=== PATIENT | female | born 1940 | race Caucasian/White ===

== ENCOUNTER 2024-11-07 21:39 | Inpatient (IN) | payer MEDICARE ==
[2024-11-07 22:10] LABS: Basophils # (A) 0.1 k/uL (0-0.2); Basophils % (A) 1 %; Eosinophils # (A) 0.3 k/uL (0-0.7); Eosinophils % (A) 3 %; HCT 32.2 % (34.0-46.0); HGB 9.1 gm/dL (11.4-16.0); Hypochromasia Marked; Lymphocytes # (A) 2.6 k/uL (1.0-4.8); Lymphocytes % (A) 29 %; MCH 25.4 pg (25.0-35.0); MCHC 28.3 g/dL (31.0-37.0); Mean Platelet Volume 7.1; Monocytes # (A) 0.5 k/uL (0-1.0); Monocytes % (A) 6 %; Neutrophils # (A) 5.3 k/uL (1.3-7.7); Neutrophils % (A) 58 %; Platelet Count 388 k/uL (150-450); RBC 3.58 m/uL (3.80-5.40); RDW 14.8 % (11.5-15.5)
--- NOTE | 2024-11-07 22:13 | ED ---
General Adult HPI - General Chief complaint: GI Bleed Stated complaint: GI Bleed Time Seen by Provider: 11/07/24 21:40 Source: patient, EMS, RN notes reviewed, old records reviewed Mode of arrival: EMS Limitations: no limitations - History of Present Illness Initial comments: 84-year-old female presenting for evaluation of rectal bleeding. Patient had several episodes of bright red rectal bleeding over the course of a few minutes just prior to arrival. She denies prior history of gastrointestinal hemorrhage. She denies any anticoagulation medication. She was transported by paramedics. She reports that the blood was bright red. No abdominal pain. - Related Data Allergies Allergy/AdvReac Type Severity Reaction Status Date / Time Penicillins Allergy Anaphylaxis Verified 11/07/24 21:42 Review of Systems ROS Statement: Those systems with pertinent positive or pertinent negative responses have been documented in the HPI. ROS Other: All systems not noted in ROS Statement are negative. Past Medical History Past Medical History: CVA/TIA, Hyperlipidemia Additional Past Medical History / Comment(s): CVA 2023, hernia History of Any Multi-Drug Resistant Organisms: None Reported Past Surgical History: Cholecystectomy, Hernia Repair Additional Past Surgical History / Comment(s): esophageal dilation Past Psychological History: Anxiety, Depression General Exam Limitations: no limitations General appearance: alert, in no apparent distress Head exam: Present: atraumatic, normocephalic Eye exam: Present: normal appearance, PERRL ENT exam: Present: normal exam Neck exam: Present: normal inspection. Absent: tenderness, meningismus Respiratory exam: Present: normal lung sounds bilaterally. Absent: respiratory distress, wheezes Cardiovascular Exam: Present: regular rate, normal rhythm GI/Abdominal exam: Present: soft. Absent: distended, tenderness Rectal exam: Present: bloody stool. Absent: hemorrhoids Neurological exam: Present: alert, oriented X3, CN II-XII intact. Absent: motor sensory deficit Psychiatric exam: Present: normal affect, normal mood Skin exam: Present: warm, dry, intact Course Vital Signs 11/07/24 11/07/24 21:43 22:39 Temperature 97.7 F Pulse Rate 98 96 Respiratory 18 15 Rate Blood Pressure 130/92 115/55 O2 Sat by Pulse 97 97 Oximetry Medical Decision Making - Medical Decision Making Was pt. sent in by a medical professional or institution (, PA, CHIEF CLINICAL OFFICER, urgent care, hospital, or longterm...) When possible be specific @ -No Did you speak to anyone other than the patient for history (EMS, parent, family, police, friend...)? What history was obtained from this source @ -No Did you review nursing and triage notes (agree or disagree)? Why? @ -I reviewed and agree with nursing and triage notes Were old charts reviewed (outside hosp., previous admission, EMS record, old EKG, old radiological studies, urgent care reports/EKG's, longterm records)? Report findings @ -No old charts were reviewed Differential GI Bleed: Esophageal varices, aortoenteric fistula, Devika-Gar, gastritis, peptic ulcer disease, diverticulosis, inflammatory bowel disease, hemorrhoids, fissure, colitis, malignancy, Meckel's diverticulum, this is not meant to be an all- inclusive list. EKG interpreted by me (3pts min.). @Sinus rhythm rate of 89, [place] interval 150, QRS duration 85, QTc [address] segment elevation. X-rays interpreted by me (1pt min.). @ -None done CT interpreted by me (1pt min.). @ -None done U/S interpreted by me (1pt. min.). @ -None done What testing was considered but not performed or refused? (CT, X-rays, U/S, labs)? Why? @ -None What meds were considered but not given or refused? Why? @ -None Did you discuss the management of the patient with other professionals (professionals i.e. , PA, CHIEF CLINICAL OFFICER, lab, RT, psych nurse, forensic social worker, manager of financial, teacher, chief information security officer, transplant case manager)? Give summary @ -Case discussed with Dr. Bailon, who is willing to see the patient in consultation. Case discussed with Elma rodríguez for [facility] will admit Was smoking cessation discussed for >3mins.? @ -No Was critical care preformed (if so, how long)? @ -No Were there social determinants of health that impacted care today? How? (Homelessness, low income, unemployed, alcoholism, drug addiction, transportation, low edu. Level, literacy, decrease access to med. care, usp, rehab)? @ -No Was there de-escalation of care discussed even if they declined (Discuss DNR or withdrawal of care, Hospice)? DNR status @ -No What co-morbidities impacted this encounter? (DM, HTN, Smoking, COPD, CAD, Cancer, CVA, ARF, Chemo, Hep., AIDS, mental health diagnosis, sleep apnea, morbid obesity)? @ -[Hypertension Was patient admitted / discharged? Hospital course, mention meds given and route, prescriptions, significant lab abnormalities, going to OR and other pertinent info. @ -84-year-old female with an episode of bright red rectal bleeding prior to ar rival. Hemoglobin is 9.1 with no baseline for comparison. Vital signs remained stable. She does have magnesium 1.3 which is replaced. She will be admitted for close monitoring, serial hemoglobin testing. Case discussed with general surgery and internal medicine. Undiagnosed new problem with uncertain prognosis? @ -[No Drug Therapy requiring intensive monitoring for toxicity (Heparin, Nitro, Insulin, Cardizem)? @ -No Were any procedures done? @ -No Diagnosis/symptom? @ -Lower GI bleed Acute, or Chronic, or Acute on Chronic? @ -Acute Uncomplicated (without systemic symptoms) or Complicated (systemic symptoms)? @ -Complicated Side effects of treatment? @ -No Exacerbation, Progression, or Severe Exacerbation? @ -No Poses a threat to life or bodily function? How? (Chest pain, [place], [place], pneumonia, PE, COPD, DKA, ARF, appy, cholecystitis, CVA, Diverticulitis, Homicidal, Suicidal, threat to staff... and all critical care pts) @Yes, GI bleed, hemorrhagic shock - Lab Data Result diagrams: 11/07/24 23:15 11/07/24 21:46 Lab Results 11/07/24 11/07/24 11/07/24 Range/Units 21:41 21:46 21:46 WBC 9.0 (3.8-10.6) k/uL RBC 3.58 L (3.80-5.40) m/uL Hgb 9.1 L (11.4-16.0) gm/dL Hct 32.2 L (34.0-46.0) % MCV 90.0 (80.0-100.0) fL MCH 25.4 (25.0-35.0) pg MCHC 28.3 L (31.0-37.0) g/dL RDW 14.8 (11.5-15.5) % Plt Count 388 (150-450) k/uL MPV 7.1 Neutrophils % 58 % Lymphocytes % 29 % Monocytes % 6 % Eosinophils % 3 % Basophils % 1 % Neutrophils # 5.3 (1.3-7.7) k/uL Lymphocytes # 2.6 (1.0-4.8) k/uL Monocytes # 0.5 (0-1.0) k/uL Eosinophils # 0.3 (0-0.7) k/uL Basophils # 0.1 (0-0.2) k/uL Hypochromasia Marked PT 10.4 (10.0-12.5) sec INR 0.9 (<1.2) APTT 19.7 L (22.0-30.0) sec Sodium (137-145) mmol/L Potassium (3.5-5.1) mmol/L Chloride (98-107) mmol/L Carbon Dioxide (22-30) mmol/L Anion Gap mmol/L BUN (7-17) mg/dL Creatinine (0.52-1.04) mg/dL Est GFR (CKD-EPI)AfAm (>60 ml/min/1.73 sqM) Est GFR (CKD-EPI)NonAf (>60 ml/min/1.73 sqM) Glucose (74-99) mg/dL Calcium (8.4-10.2) mg/dL Magnesium (1.6-2.3) mg/dL Total Bilirubin (0.2-1.3) mg/dL AST (14-36) U/L ALT (4-34) U/L Alkaline Phosphatase (38-126) U/L Total Protein (6.3-8.2) g/dL Albumin (3.5-5.0) g/dL Blood Type B Positive Blood Type Confirm Blood Type Recheck No Previous Record Bld Type Recheck Status CABO Indicated Antibody Screen NEGATIVE Spec Expiration Date 11/10/2024234011/07/24 11/07/24 Range/Units 21:46 21:46 WBC (3.8-10.6) k/uL RBC (3.80-5.40) m/uL Hgb (11.4-16.0) gm/dL Hct (34.0-46.0) % MCV (80.0-100.0) fL MCH (25.0-35.0) pg MCHC (31.0-37.0) g/dL RDW (11.5-15.5) % Plt Count (150-450) k/uL MPV Neutrophils % % Lymphocytes % % Monocytes % % Eosinophils % % Basophils % % Neutrophils # (1.3-7.7) k/uL Lymphocytes # (1.0-4.8) k/uL Monocytes # (0-1.0) k/uL Eosinophils # (0-0.7) k/uL Basophils # (0-0.2) k/uL Hypochromasia PT (10.0-12.5) sec INR (<1.2) APTT (22.0-30.0) sec Sodium 135 L (137-145) mmol/L Potassium 4.7 (3.5-5.1) mmol/L Chloride 102 (98-107) mmol/L Carbon Dioxide 16 L (22-30) mmol/L Anion Gap 17 mmol/L BUN 24 H (7-17) mg/dL Creatinine 0.92 (0.52-1.04) mg/dL Est GFR (CKD-EPI)AfAm 66 (>60 ml/min/1.73 sqM) Est GFR (CKD-EPI)NonAf 57 (>60 ml/min/1.73 sqM) Glucose 142 H (74-99) mg/dL Calcium 9.8 (8.4-10.2) mg/dL Magnesium 1.3 L (1.6-2.3) mg/dL Total Bilirubin 0.3 (0.2-1.3) mg/dL AST 22 (14-36) U/L ALT 17 (4-34) U/L Alkaline Phosphatase 68 (38-126) U/L Total Protein 6.2 L (6.3-8.2) g/dL Albumin 4.0 (3.5-5.0) g/dL Blood Type Blood Type Confirm B Positive Blood Type Recheck Bld Type Recheck Status Antibody Screen Spec Expiration Date Disposition Clinical Impression: Hematochezia Disposition: ADMITTED IP TO THIS [facility] Condition: Stable Is patient prescribed a controlled substance at d/c from ED?: No Time of Disposition: 23:32
[2024-11-07 22:23] LABS: ALT 17 U/L (4-34); AST 22 U/L (14-36); African American GFR (CKD) 66 (>60 ml/min/1.73 sqM); Alkaline Phosphatase 68 U/L (38-126); Anion Gap 17 mmol/L; Blood Urea Nitrogen 24 mg/dL (7-17); Calcium 9.8 mg/dL (8.4-10.2); Carbon Dioxide 16 mmol/L (22-30); Chloride 102 mmol/L (98-107); Glucose 142 mg/dL (74-99); Magnesium 1.3 mg/dL (1.6-2.3); Non-African American GFR(CKD) 57 (>60 ml/min/1.73 sqM); Potassium 4.7 mmol/L (3.5-5.1); Sodium 135 mmol/L (137-145); Total Bilirubin 0.3 mg/dL (0.2-1.3); Total Protein 6.2 g/dL (6.3-8.2)
[2024-11-07 22:41] LABS: INR 0.9 (<1.2); Prothrombin Time 10.4 sec (10.0-12.5)
[2024-11-07 22:45] LABS: Partial Thromboplastin Time 19.7 sec (22.0-30.0)
[2024-11-07] MEDS: MAGNESIUM SULFATE-D5W PMX 1 GM in DEXTROSE/WATER 1 100ML.BAG IVPB SCH (22:57)
[2024-11-07] MEDS ORDERED: NALOXONE 0.4 MG/ML 1 ML VIAL IV PRN (23:01)
[2024-11-07] MEDS ORDERED: ACETAMINOPHEN TAB 325 MG TAB PO PRN (23:01)
[2024-11-07 23:26] LABS: Basophils # (A) 0.1 k/uL (0-0.2); Basophils % (A) 1 %; Eosinophils # (A) 0.2 k/uL (0-0.7); Eosinophils % (A) 2 %; HCT 28.1 % (34.0-46.0); HGB 8.4 gm/dL (11.4-16.0); Hypochromasia Marked; Lymphocytes # (A) 1.8 k/uL (1.0-4.8); Lymphocytes % (A) 20 %; MCH 26.7 pg (25.0-35.0); MCV 89.3 fL (80.0-100.0); Mean Platelet Volume 6.6; Monocytes # (A) 0.5 k/uL (0-1.0); Monocytes % (A) 6 %; Neutrophils # (A) 6.1 k/uL (1.3-7.7); Neutrophils % (A) 69 %; Platelet Count 335 k/uL (150-450); RBC 3.15 m/uL (3.80-5.40); RDW 14.8 % (11.5-15.5); WBC 8.9 k/uL (3.8-10.6)
[2024-11-07] MEDS: SODIUM CHLORIDE 0.9% 1,000 ML IV SCH (23:33)
[2024-11-07] MEDS: ONDANSETRON 4 MG/2 ML VIAL IVP STA (23:33)
[2024-11-08 02:44] LABS: Basophils % (A) 1 %; Eosinophils # (A) 0.1 k/uL (0-0.7); Eosinophils % (A) 1 %; HCT 27.1 % (34.0-46.0); HGB 7.9 gm/dL (11.4-16.0); Hypochromasia Marked; Lymphocytes # (A) 1.2 k/uL (1.0-4.8); Lymphocytes % (A) 16 %; MCH 26.6 pg (25.0-35.0); MCHC 29.4 g/dL (31.0-37.0); MCV 90.7 fL (80.0-100.0); Mean Platelet Volume 7.1; Monocytes # (A) 0.3 k/uL (0-1.0); Monocytes % (A) 4 %; Neutrophils # (A) 5.9 k/uL (1.3-7.7); Neutrophils % (A) 77 %; Platelet Count 314 k/uL (150-450); RBC 2.98 m/uL (3.80-5.40); RDW 14.8 % (11.5-15.5); WBC 7.6 k/uL (3.8-10.6)
[2024-11-08 05:56] LABS: Basophils % (A) 1 %; Eosinophils # (A) 0.1 k/uL (0-0.7); Eosinophils % (A) 1 %; HCT 26.9 % (34.0-46.0); HGB 8.1 gm/dL (11.4-16.0); Hypochromasia Marked; Lymphocytes # (A) 1.6 k/uL (1.0-4.8); Lymphocytes % (A) 22 %; MCH 26.9 pg (25.0-35.0); MCHC 30.1 g/dL (31.0-37.0); MCV 89.1 fL (80.0-100.0); Mean Platelet Volume 6.8; Monocytes # (A) 0.6 k/uL (0-1.0); Monocytes % (A) 8 %; Neutrophils % (A) 67 %; Platelet Count 296 k/uL (150-450); RBC 3.02 m/uL (3.80-5.40); RDW 14.9 % (11.5-15.5); WBC 7.5 k/uL (3.8-10.6)
[2024-11-08] MEDS ORDERED: HYDROcodone/APAP 5-325MG 1 EACH TAB PO PRN (09:06)
[2024-11-08] MEDS ORDERED: NALOXONE 0.4 MG/ML 1 ML VIAL IV PRN (09:06)
[2024-11-08] MEDS ORDERED: MAG HYDROX/AL HYDROX/SIMETH 30 ML CUP PO PRN (09:06)
[2024-11-08] MEDS: LEVOTHYROXINE 75 MCG TAB PO SCH (10:23)
--- NOTE | 2024-11-08 10:49 | CT ---
EXAMINATION TYPE: CT angio abdomen pelvis CT abdomen and pelvis without contrast. CT angiogram abdomen and pelvis with contrast. DATE OF EXAM: 11/08/2024 10:35 AM COMPARISON: None. CLINICAL INDICATION: Female, 84 years old with history of Bleeding per rectum; PHH, rectal bleeding TECHNIQUE: CT angio abdomen pelvis CT noncontrast abdomen pelvis and bilateral lower extremity followed by CT angiogram abdomen and pelv is. Multiple thin slice sub-millimeter images were obtained before and after administration of contrast. 3-D reconstructed images and maximum intensity projection images were obtained. CT angio abdomen p ligia CT Contrast: Contrast used:100 mL of Isovue 370 without and with IV Contrast, Oral contrast used: without Oral Contrast None CT DLP: 1602 mGycm, Automated exposure control for dose reduction was used. FINDINGS: CTA Abdomen and pelvis: The abdominal aorta does not demonstrate aneurysmal dilatation. Atherosclero tic plaquing is identified within the abdominal aorta. The origins of the superior mesenteric artery , renal arteries, inferior mesenteric artery, and celiac axis are patent. The iliac vessels are norm al in morphology. LOWER CHEST: 4 x 2 mm right middle lobe pulmonary nodule. No evidence of focal consolidation, pneumot horax or pleural effusion. LIVER: Unremarkable GALLBLADDER AND BILE DUCTS: The gallbladder is surgically absent. PANCREAS: Unremarkable. SPLEEN: Unremarkable. ADRENAL GLANDS: Unremarkable. KIDNEYS AND URETERS: No evidence of hydronephrosis or renal calculus. The ureters are unremarkable. Right renal cortical cyst. PELVIS BLADDER: Unremarkable REPRODUCTIVE: Unremarkable. ABDOMEN & PELVIS STOMACH AND BOWEL: Evaluation of the gastrointestinal tract demonstrates scattered high density fecal matter none of which enlarges in size on delayed imaging. No evidence of high density hemorrhage on arterial phase or pooling of blood on delayed phases.. Scattered diverticula are noted throughout the colon. No evidence of bowel obstruction. PERITONEUM: No evidence of pneumoperitoneum or free fluid. VASCULATURE: Moderate atherosclerotic calcifications are present throughout the abdominal aorta and i ts branches. MUSCULOSKELETAL: No acute osseous abnormalities, remote left inferior pubic ramus fracture and superi or pubic ramus fracture. LYMPH NODES: No gross evidence for lymphadenopathy. SOFT TISSUE/ABDOMINAL WALL: Bilateral fat filled inguinal hernia. IMPRESSION: 1. No evidence for gastrointestinal hemorrhage. No evidence of vascular occlusion. Moderate severe a therosclerotic disease. No evidence for aneurysm. [facility], , 11/08/2024 10:47 AM
[2024-11-08] MEDS: PANTOPRAZOLE 40 MG/10 ML VIAL IVP SCH (11:08)
[2024-11-08 11:29] LABS: Basophils % (A) 1 %; Eosinophils # (A) 0.1 k/uL (0-0.7); Eosinophils % (A) 2 %; HCT 24.2 % (34.0-46.0); HGB 7.3 gm/dL (11.4-16.0); Hypochromasia Marked; Lymphocytes # (A) 1.5 k/uL (1.0-4.8); Lymphocytes % (A) 22 %; MCH 27.2 pg (25.0-35.0); MCHC 30.2 g/dL (31.0-37.0); MCV 89.8 fL (80.0-100.0); Mean Platelet Volume 7.1; Monocytes # (A) 0.4 k/uL (0-1.0); Monocytes % (A) 6 %; Neutrophils # (A) 4.6 k/uL (1.3-7.7); Neutrophils % (A) 68 %; Platelet Count 308 k/uL (150-450); WBC 6.8 k/uL (3.8-10.6)
--- NOTE | 2024-11-08 13:20 | P.HPIM ---
History of Present Illness H&P Date: 11/08/24 History of present illness; patient is a 84-year-old lady with past medical history significant for CVA, dementia, hyperlipidemia who presented to the ER for complaint of bleeding per rectum. Patient was all right a few hours back before coming to the hospital when she suddenly started noticing bright red blood coming out of her rectum. Bleeding was sudden onset, no blood clots noticed, there was no complaint of any abdominal pain. Patient denies any altered bowel movements. There is no complaint of constipation. Denies any nausea, vomiting or hematemesis. Patient denies any history of hemorrhoids. There was no complaint of chest pain or shortness of breath. Because of this bleeding per rectum, patient brought to the ER Initial lab work done in the ER showed WBC 9, hemoglobin 9.1, platelet count 388, sodium 135, potassium 4.7, BUN 24, creatinine 0.92, glucose 142, magnesium 1.3, albumin 4 EKG done in the ER showed heart rate of 89 , no ST segment elevation or depression seen, no T-wave inversions seen. Patient admitted to internal medicine service REVIEW OF SYSTEMS: CONSTITUTIONAL: No fever, no malaise, no fatigue. HEENT: No recent visual problems or hearing problems. Denied any sore throat. CARDIOVASCULAR: No chest pain, orthopnea, PND, no palpitations, no syncope. PULMONARY: No shortness of breath, no cough, no hemoptysis. GASTROINTESTINAL: As mentioned above NEUROLOGICAL: No headaches, no weakness, no numbness. HEMATOLOGICAL: Denies any bleeding or petechiae. GENITOURINARY: Denies any burning micturition, frequency, or urgency. MUSCULOSKELETAL/RHEUMATOLOGICAL: Denies any joint pain, swelling, or any muscle pain. ENDOCRINE: Denies any polyuria or polydipsia. The rest of the 14-point review of systems is negative. PHYSICAL EXAMINATION: GENERAL: The patient is alert and oriented x2-3, not in any acute distress. Ill looking HEENT: Pupils are round and equally reacting to light. EOMI. No scleral icterus. No conjunctival pallor. Normocephalic, atraumatic. No pharyngeal erythema. No thyromegaly. CARDIOVASCULAR: S1 and S2 present. No murmurs, rubs, or gallops. PULMONARY: Chest is clear to auscultation, no wheezing or crackles. ABDOMEN: Soft, nontender, nondistended, normoactive bowel sounds. No palpable organomegaly. MUSCULOSKELETAL: No joint swelling or deformity. EXTREMITIES: No cyanosis, clubbing, or pedal edema. NEUROLOGICAL: Gross neurological examination did not reveal any focal deficits. SKIN: No rashes. Assessment and plan Bleeding per rectum Acute blood loss anemia Hypomagnesemia History of hypertension History of hypothyroidism Dementia History of CVA Monitor vital signs Monitor CBC Monitor CMP Continue telemetry monitoring H&H every 6 hourly Start IV fluids Avoid aspirin or NSAIDs Ordered antibiotics Ordered CTA abdominal pelvis Start Protonix Consult surgery Labs and medication were reviewed.. Continue same treatment. Continue with symptomatic treatment. Resume home medication. Monitor labs and vitals. DVT and GI prophylaxis. Further recommendations as per clinical course of the patient Dictation was produced using [employer] dictation software. please excuse any grammatical, word or spelling errors. Past Medical History Past Medical History: CVA/TIA, Hyperlipidemia Additional Past Medical History / Comment(s): CVA 2023, hernia History of Any Multi-Drug Resistant Organisms: None Reported Past Surgical History: Cholecystectomy, Hernia Repair Additional Past Surgical History / Comment(s): esophageal dilation Past Psychological History: Anxiety, Depression Medications and Allergies Home Medications Medication Instructions Recorded Confirmed Type Aspirin EC [Ecotrin Low Dose] 81 mg PO DAILY@1200 11/08/24 11/08/24 History Atorvastatin [Lipitor] 40 mg PO HS 11/08/24 11/08/24 History Cholecalciferol [Vitamin D3 (25 50 mcg PO DAILY 11/08/24 11/08/24 History Mcg = 1000 Iu)] Escitalopram Oxalate [Lexapro] 10 mg PO HS 11/08/24 11/08/24 History Famotidine [Pepcid] 20 mg PO HS 11/08/24 11/08/24 History Levothyroxine Sodium [Synthroid] 75 mcg PO DAILY 11/08/24 11/08/24 History Losartan [Cozaar] 25 mg PO DAILY@1200 11/08/24 11/08/24 History Meloxicam [Mobic] 7.5 mg PO W/SUPPER 11/08/24 11/08/24 History Metoprolol Succinate (ER) [Toprol 25 mg PO HS 11/08/24 11/08/24 History Xl] QUEtiapine FUMARATE [SEROquel] 25 mg PO HS 11/08/24 11/08/24 History Vitamin B12 (Unknown Dose) 1 tab PO DAILY@1200 11/08/24 11/08/24 History metFORMIN HCL 1,000 mg PO BID-W/MEALS 11/08/24 11/08/24 History Allergies Allergy/AdvReac Type Severity Reaction Status Date / Time ciprofloxacin [From Cipro] Allergy PER PCP Verified 11/08/24 09:01 latex Allergy PER PCP Verified 11/08/24 09:01 Penicillins Allergy Anaphylaxis Verified 11/08/24 09:01 Physical Exam Vitals: Vital Signs Temp Pulse Resp BP Pulse Ox 11/08/24 07:26 89 18 109/43 95 11/08/24 07:00 80 13 109/43 93 L 11/08/24 04:30 81 16 122/50 93 L 11/08/24 00:00 78 16 118/63 95 11/07/24 22:39 96 15 115/55 97 11/07/24 21:43 97.7 F 98 18 130/92 97 Intake and Output 11/07/24 11/08/24 11/08/24 22:59 06:59 14:59 Other: Weight 73.936 kg Results CBC & Chem 7: 11/08/24 11:01 11/07/24 21:46 Labs: Abnormal Lab Results - Last 24 Hours (Table) 11/07/24 11/07/24 11/07/24 Range/Units 21:46 21:46 21:46 RBC 3.58 L (3.80-5.40) m/uL Hgb 9.1 L (11.4-16.0) gm/dL Hct 32.2 L (34.0-46.0) % MCHC 28.3 L (31.0-37.0) g/dL APTT 19.7 L (22.0-30.0) sec Sodium 135 L (137-145) mmol/L Carbon Dioxide 16 L (22-30) mmol/L BUN 24 H (7-17) mg/dL Glucose 142 H (74-99) mg/dL Magnesium 1.3 L (1.6-2.3) mg/dL Total Protein 6.2 L (6.3-8.2) g/dL 11/07/24 11/08/24 11/08/24 Range/Units 23:15 02:10 05:40 RBC 3.15 L 2.98 L 3.02 L (3.80-5.40) m/uL Hgb 8.4 L 7.9 L 8.1 L (11.4-16.0) gm/dL Hct 28.1 L 27.1 L 26.9 L (34.0-46.0) % MCHC 30.0 L 29.4 L 30.1 L (31.0-37.0) g/dL APTT (22.0-30.0) sec Sodium (137-145) mmol/L Carbon Dioxide (22-30) mmol/L BUN (7-17) mg/dL Glucose (74-99) mg/dL Magnesium (1.6-2.3) mg/dL Total Protein (6.3-8.2) g/dL
[2024-11-08 16:12] LABS: Glucose,Whole Blood 135 mg/dL (70-110)
--- NOTE | 2024-11-08 16:55 | P.GSCN ---
History of Present Illness Consult date: 11/08/24 Reason for Consult: GI bleed History of present illness: This is an 84-year-old female who is admitted through the emergency room with complaints of rectal bleeding. Patient states h she had multiple small bloody bowel movements. Past Medical History Past Medical History: CVA/TIA, Hyperlipidemia Additional Past Medical History / Comment(s): CVA 2023, hernia History of Any Multi-Drug Resistant Organisms: None Reported Past Surgical History: Cholecystectomy, Hernia Repair Additional Past Surgical History / Comment(s): esophageal dilation Past Psychological History: Anxiety, Depression Medications and Allergies Home Medications Medication Instructions Recorded Confirmed Type Aspirin EC [Ecotrin Low Dose] 81 mg PO DAILY@119911/08/24 11/08/24 History Atorvastatin [Lipitor] 40 mg PO HS 11/08/24 11/08/24 History Cholecalciferol [Vitamin D3 (25 50 mcg PO DAILY 11/08/24 11/08/24 History Mcg = 1000 Iu)] Escitalopram Oxalate [Lexapro] 10 mg PO HS 11/08/24 11/08/24 History Famotidine [Pepcid] 20 mg PO HS 11/08/24 11/08/24 History Levothyroxine Sodium [Synthroid] 75 mcg PO DAILY 11/08/24 11/08/24 History Losartan [Cozaar] 25 mg PO DAILY@1200 11/08/24 11/08/24 History Meloxicam [Mobic] 7.5 mg PO W/SUPPER 11/08/24 11/08/24 History Metoprolol Succinate (ER) [Toprol 25 mg PO HS 11/08/24 11/08/24 History Xl] QUEtiapine FUMARATE [SEROquel] 25 mg PO HS 11/08/24 11/08/24 History Vitamin B12 (Unknown Dose) 1 tab PO DAILY@1200 11/08/24 11/08/24 History metFORMIN HCL 1,000 mg PO BID-W/MEALS 11/08/24 11/08/24 History Allergies Allergy/AdvReac Type Severity Reaction Status Date / Time ciprofloxacin [From Cipro] Allergy PER PCP Verified 11/08/24 09:01 latex Allergy PER PCP Verified 11/08/24 09:01 Penicillins Allergy Anaphylaxis Verified 11/08/24 09:01 Surgical - Exam Vital Signs Temp Pulse Resp BP Pulse Ox 97.7 F 98 18 130/92 97 11/07/24 21:43 11/07/24 21:43 11/07/24 21:43 11/07/24 21:43 11/07/24 21:43 - General well developed, well nourished, no distress - Eyes PERRL - ENT normal pinna - Neck no masses - Respiratory normal expansion - Cardiovascular Rhythm: regular - Abdomen Abdomen: soft, non tender Results - Labs 11/08/24 11:01 11/07/24 21:46 Abnormal Lab Results - Last 24 Hours (Table) 11/07/24 11/07/24 11/07/24 Range/Units 21:41 21:46 21:46 RBC 3.58 L (3.80-5.40) m/uL Hgb 9.1 L (11.4-16.0) gm/dL Hct 32.2 L (34.0-46.0) % MCHC 28.3 L (31.0-37.0) g/dL APTT 19.7 L (22.0-30.0) sec Sodium (137-145) mmol/L Carbon Dioxide (22-30) mmol/L BUN (7-17) mg/dL Glucose (74-99) mg/dL POC Glucose (mg/dL) (70-110) mg/dL Magnesium (1.6-2.3) mg/dL Total Protein (6.3-8.2) g/dL Crossmatch See Detail 11/07/24 11/07/24 11/08/24 Range/Units 21:46 23:15 02:10 RBC 3.15 L 2.98 L (3.80-5.40) m/uL Hgb 8.4 L 7.9 L (11.4-16.0) gm/dL Hct 28.1 L 27.1 L (34.0-46.0) % MCHC 30.0 L 29.4 L (31.0-37.0) g/dL APTT (22.0-30.0) sec Sodium 135 L (137-145) mmol/L Carbon Dioxide 16 L (22-30) mmol/L BUN 24 H (7-17) mg/dL Glucose 142 H (74-99) mg/dL POC Glucose (mg/dL) (70-110) mg/dL Magnesium 1.3 L (1.6-2.3) mg/dL Total Protein 6.2 L (6.3-8.2) g/dL Crossmatch 11/08/24 11/08/24 11/08/24 Range/Units 05:40 11:01 16:10 RBC 3.02 L 2.70 L (3.80-5.40) m/uL Hgb 8.1 L 7.3 L (11.4-16.0) gm/dL Hct 26.9 L 24.2 L (34.0-46.0) % MCHC 30.1 L 30.2 L (31.0-37.0) g/dL APTT (22.0-30.0) sec Sodium (137-145) mmol/L Carbon Dioxide (22-30) mmol/L BUN (7-17) mg/dL Glucose (74-99) mg/dL POC Glucose (mg/dL) 135 H (70-110) mg/dL Magnesium (1.6-2.3) mg/dL Total Protein (6.3-8.2) g/dL Crossmatch Diabetes panel 11/07/24 Range/Units 21:46 Sodium 135 L (137-145) mmol/L Potassium 4.7 (3.5-5.1) mmol/L Chloride 102 (98-107) mmol/L Carbon Dioxide 16 L (22-30) mmol/L BUN 24 H (7-17) mg/dL Creatinine 0.92 (0.52-1.04) mg/dL Glucose 142 H (74-99) mg/dL Calcium 9.8 (8.4-10.2) mg/dL AST 22 (14-36) U/L ALT 17 (4-34) U/L Alkaline Phosphatase 68 (38-126) U/L Total Protein 6.2 L (6.3-8.2) g/dL Albumin 4.0 (3.5-5.0) g/dL Calcium panel 11/07/24 Range/Units 21:46 Calcium 9.8 (8.4-10.2) mg/dL Albumin 4.0 (3.5-5.0) g/dL Pituitary panel 11/07/24 Range/Units 21:46 Sodium 135 L (137-145) mmol/L Potassium 4.7 (3.5-5.1) mmol/L Chloride 102 (98-107) mmol/L Carbon Dioxide 16 L (22-30) mmol/L BUN 24 H (7-17) mg/dL Creatinine 0.92 (0.52-1.04) mg/dL Glucose 142 H (74-99) mg/dL Calcium 9.8 (8.4-10.2) mg/dL Adrenal panel 11/07/24 Range/Units 21:46 Sodium 135 L (137-145) mmol/L Potassium 4.7 (3.5-5.1) mmol/L Chloride 102 (98-107) mmol/L Carbon Dioxide 16 L (22-30) mmol/L BUN 24 H (7-17) mg/dL Creatinine 0.92 (0.52-1.04) mg/dL Glucose 142 H (74-99) mg/dL Calcium 9.8 (8.4-10.2) mg/dL Total Bilirubin 0.3 (0.2-1.3) mg/dL AST 22 (14-36) U/L ALT 17 (4-34) U/L Alkaline Phosphatase 68 (38-126) U/L Total Protein 6.2 L (6.3-8.2) g/dL Albumin 4.0 (3.5-5.0) g/dL Assessment and Plan Assessment: GI bleed. Patient will start clear liquids. We will plan for bowel prep to teran with endoscopy on .
[2024-11-08 20:18] LABS: Glucose,Whole Blood 116 mg/dL (70-110)
[2024-11-08] MEDS: QUEtiapine 25 MG TAB PO SCH (20:47)
[2024-11-08] MEDS: ESCITALOPRAM 10 MG TAB PO SCH (20:47)
[2024-11-08] MEDS: ATORVASTATIN 40 MG TAB PO SCH (20:47)
[2024-11-09 06:40] LABS: Glucose,Whole Blood 123 mg/dL (70-110)
[2024-11-09 08:38] LABS: HCT 26.3 % (34.0-46.0); Hypochromasia Marked; MCH 27.1 pg (25.0-35.0); MCHC 30.5 g/dL (31.0-37.0); MCV 88.8 fL (80.0-100.0); Mean Platelet Volume 6.8; Platelet Count 281 k/uL (150-450); RBC 2.96 m/uL (3.80-5.40); RDW 14.9 % (11.5-15.5); WBC 5.6 k/uL (3.8-10.6)
[2024-11-09] MEDS: CHOLECALCIFEROL 25 MCG (1000 IU) TABLET PO SCH (08:41)
[2024-11-09] MEDS: PEG 3350 (236 GM/BTL) + LYTES 4,000 ML BOTTLE PO ONE (08:47)
[2024-11-09 08:48] LABS: African American GFR (CKD) 86 (>60 ml/min/1.73 sqM); Anion Gap 6 mmol/L; Blood Urea Nitrogen 20 mg/dL (7-17); Calcium 8.9 mg/dL (8.4-10.2); Carbon Dioxide 26 mmol/L (22-30); Chloride 104 mmol/L (98-107); Glucose 107 mg/dL (74-99); Non-African American GFR(CKD) 75 (>60 ml/min/1.73 sqM); Potassium 4.2 mmol/L (3.5-5.1); Sodium 136 mmol/L (137-145)
[2024-11-09] MEDS ORDERED: ESCITALOPRAM 10 MG TAB PO SCH (09:00)
[2024-11-09 11:10] LABS: Reticulocyte % 2.7 % (0.5-2.0)
[2024-11-09 11:31] LABS: Glucose,Whole Blood 138 mg/dL (70-110)
--- NOTE | 2024-11-09 13:00 | P.PN ---
Subjective Progress Note Date: 11/09/24 patient is a 84-year-old lady with past medical history significant for CVA, dementia, hyperlipidemia who presented to the ER for complaint of bleeding per rectum. Patient was all right a few hours back before coming to the hospital when she suddenly started noticing bright red blood coming out of her rectum. Bleeding was sudden onset, no blood clots noticed, there was no complaint of any abdominal pain. Patient denies any altered bowel movements. There is no complaint of constipation. Denies any nausea, vomiting or hematemesis. Patient denies any history of hemorrhoids. There was no complaint of chest pain or shortness of breath. Because of this bleeding per rectum, patient brought to the ER Initial lab work done in the ER showed WBC 9, hemoglobin 9.1, platelet count 388, sodium 135, potassium 4.7, BUN 24, creatinine 0.92, glucose 142, magnesium 1.3, albumin 4 EKG done in the ER showed heart rate of 89 , no ST segment elevation or depression seen, no T-wave inversions seen. Patient admitted to internal medicine service 11/09. Patient seen and examined. Blood work done this morning showedWBC 5.6, hemoglobin 8, platelet count 281, sodium 136, potassium 4.2, BUN 20, creatinine 0.74. Patient currently undergoing bowel prep for colonoscopy. Not having any blood in the stools REVIEW OF SYSTEMS: CONSTITUTIONAL: No fever, no malaise,. CARDIOVASCULAR: No chest pain, no palpitations, no syncope. PULMONARY: No shortness of breath, no cough, GASTROINTESTINAL: No diarrhea, no nausea, no vomiting, no abdominal pain. NEUROLOGICAL: No headaches, no weakness, PHYSICAL EXAMINATION: GENERAL: The patient is alert and oriented x3, not in any acute distress. Well developed, well nourished. HEENT: Pupils are round and equally reacting to light. EOMI. No scleral icterus. No conjunctival pallor. Normocephalic, atraumatic. No pharyngeal erythema. No thyromegaly. CARDIOVASCULAR: S1 and S2 present. No murmurs, rubs, or gallops. PULMONARY: Chest is clear to auscultation, no wheezing or crackles. ABDOMEN: Soft, nontender, nondistended, normoactive bowel sounds. No palpable organomegaly. MUSCULOSKELETAL: No joint swelling or deformity. EXTREMITIES: No cyanosis, clubbing, or pedal edema. NEUROLOGICAL: Gross neurological examination did not reveal any focal deficits. SKIN: No rashes. Assessment and plan Bleeding per rectum Acute blood loss anemia Hypomagnesemia History of hypertension History of hypothyroidism Dementia History of CVA Monitor vital signs Monitor CBC Monitor CMP Continue telemetry monitoring Continue IV fluid Avoid aspirin or NSAIDs Continue IV Protonix CT abdominal pelvis showed no evidence for GI hemorrhage. No evidence for vascular occlusion. Surgery following, planning EGD and colonoscopy tomorrow Labs and medication were reviewed.. Continue same treatment. Continue with symptomatic treatment. Resume home medication. Monitor labs and vitals. DVT and GI prophylaxis. Further recommendations as per clinical course of the patient Dictation was produced using [employer] dictation software. please excuse any g rammatical, word or spelling errors. Objective - Vital Signs Vital signs: Vital Signs Temp 97.6 F 11/09/24 03:52 Pulse 85 11/09/24 03:52 Resp 16 11/09/24 03:52 BP 172/83 11/09/24 03:52 Pulse Ox 93 L 11/09/24 03:52 FiO2 Intake & Output 11/08/24 11/09/24 11/09/24 18:59 06:59 18:59 Intake Total 310 Balance 310 Weight 73.936 kg 71.8 kg Intake: Blood Product 310 Rc As-1 Unit 310 [id number] Other: Voiding Method Bedside Commode # Voids 1 1 # Bowel Movements 1 - Labs CBC & Chem 7: 11/09/24 08:07 11/09/24 08:07 Labs: Abnormal Lab Results - Last 24 Hours (Table) 11/07/24 11/08/24 11/08/24 Range/Units 21:41 11:01 16:10 RBC 2.70 L (3.80-5.40) m/uL Hgb 7.3 L (11.4-16.0) gm/dL Hct 24.2 L (34.0-46.0) % MCHC 30.2 L (31.0-37.0) g/dL Sodium (137-145) mmol/L BUN (7-17) mg/dL Glucose (74-99) mg/dL POC Glucose (mg/dL) 135 H (70-110) mg/dL Crossmatch See Detail 11/08/24 11/09/24 11/09/24 Range/Units 20:17 06:39 08:07 RBC 2.96 L (3.80-5.40) m/uL Hgb 8.0 L (11.4-16.0) gm/dL Hct 26.3 L (34.0-46.0) % MCHC 30.5 L (31.0-37.0) g/dL Sodium (137-145) mmol/L BUN (7-17) mg/dL Glucose (74-99) mg/dL POC Glucose (mg/dL) 116 H 123 H (70-110) mg/dL Crossmatch 11/09/24 Range/Units 08:07 RBC (3.80-5.40) m/uL Hgb (11.4-16.0) gm/dL Hct (34.0-46.0) % MCHC (31.0-37.0) g/dL Sodium 136 L (137-145) mmol/L BUN 20 H (7-17) mg/dL Glucose 107 H (74-99) mg/dL POC Glucose (mg/dL) (70-110) mg/dL Crossmatch
--- NOTE | 2024-11-09 13:43 | P.PN ---
Subjective Progress Note Date: 11/09/24 SURGICAL PROGRESS NOTE CHIEF COMPLAINT: GI bleed HISTORY OF PRESENT ILLNESS: Patient reports no further rectal bleeding today. She does report having some spots of blood a bowel movement yesterday. But since then the blood has resolved. Hemoglobin stable at 8.0. Sodium 136 potassium 4.2 creatinine 0.74. Patient has received 1 unit of blood during this admission PHYSICAL EXAM: VITAL SIGNS: Reviewed. GENERAL: Well-developed in no acute distress. ABDOMEN: Soft. Nondistended. Nontender. NEUROLOGIC: Alert and oriented. Cranial nerves II through XII grossly intact. Hard of hearing. ASSESSMENT: 1. Acute GI bleed with rectal bleeding 2. Anemia PLAN: -Patient scheduled for EGD and colonoscopy tomorrow with Dr. Adamaris Wilkins bowel prep today -Clear liquid diet -N.p.o. after midnight Physician Nuclear Operations Specialist note has been reviewed by physician. Signing provider agrees with the documented findings, assessment, and plan of care. Objective - Vital Signs Vital signs: Vital Signs Temp 97.5 F L 11/09/24 08:00 Pulse 84 11/09/24 08:00 Resp 18 11/09/24 08:00 BP 160/79 11/09/24 08:00 Pulse Ox 94 L 11/09/24 08:00 FiO2 Intake & Output 11/08/24 11/09/24 11/09/24 18:59 06:59 18:59 Intake Total 310 Balance 310 Weight 73.936 kg 71.8 kg Intake: Blood Product 310 Rc As-1 Unit 310 [id number] Other: Voiding Method Bedside Commode Bedside Commode # Voids 1 1 # Bowel Movements 1 - Labs CBC & Chem 7: 11/09/24 08:07 11/09/24 08:07 Labs: Abnormal Lab Results - Last 24 Hours (Table) 11/07/24 11/08/24 11/08/24 Range/Units 21:41 16:10 20:17 RBC (3.80-5.40) m/uL Hgb (11.4-16.0) gm/dL Hct (34.0-46.0) % MCHC (31.0-37.0) g/dL Retic Count (0.5-2.0) % Sodium (137-145) mmol/L BUN (7-17) mg/dL Glucose (74-99) mg/dL POC Glucose (mg/dL) 135 H 116 H (70-110) mg/dL Crossmatch See Detail 11/09/24 11/09/24 11/09/24 Range/Units 06:39 08:07 08:07 RBC 2.96 L (3.80-5.40) m/uL Hgb 8.0 L (11.4-16.0) gm/dL Hct 26.3 L (34.0-46.0) % MCHC 30.5 L (31.0-37.0) g/dL Retic Count (0.5-2.0) % Sodium 136 L (137-145) mmol/L BUN 20 H (7-17) mg/dL Glucose 107 H (74-99) mg/dL POC Glucose (mg/dL) 123 H (70-110) mg/dL Crossmatch 11/09/24 11/09/24 Range/Units 08:07 11:30 RBC (3.80-5.40) m/uL Hgb (11.4-16.0) gm/dL Hct (34.0-46.0) % MCHC (31.0-37.0) g/dL Retic Count 2.7 H (0.5-2.0) % Sodium (137-145) mmol/L BUN (7-17) mg/dL Glucose (74-99) mg/dL POC Glucose (mg/dL) 138 H (70-110) mg/dL Crossmatch
[2024-11-09 15:55] LABS: Basophils % (A) 1 %; Eosinophils # (A) 0.1 k/uL (0-0.7); Eosinophils % (A) 2 %; HGB 8.6 gm/dL (11.4-16.0); Hypochromasia Moderate; Lymphocytes # (A) 1.3 k/uL (1.0-4.8); Lymphocytes % (A) 22 %; MCH 26.4 pg (25.0-35.0); MCHC 29.6 g/dL (31.0-37.0); MCV 89.3 fL (80.0-100.0); Mean Platelet Volume 7.9; Monocytes # (A) 0.4 k/uL (0-1.0); Monocytes % (A) 6 %; Neutrophils % (A) 67 %; Platelet Count 315 k/uL (150-450); Poikilocytosis Slight; RBC 3.25 m/uL (3.80-5.40); RDW 15.3 % (11.5-15.5)
[2024-11-09 16:26] LABS: Glucose,Whole Blood 126 mg/dL (70-110)
[2024-11-09 20:18] LABS: Glucose,Whole Blood 143 mg/dL (70-110)
[2024-11-10 05:57] LABS: Glucose,Whole Blood 120 mg/dL (70-110)
[2024-11-10 08:50] LABS: Basophils % (A) 1 %; Eosinophils # (A) 0.2 k/uL (0-0.7); Eosinophils % (A) 4 %; HCT 26.2 % (34.0-46.0); HGB 7.9 gm/dL (11.4-16.0); Hypochromasia Marked; Lymphocytes # (A) 1.4 k/uL (1.0-4.8); Lymphocytes % (A) 27 %; MCHC 30.3 g/dL (31.0-37.0); MCV 89.2 fL (80.0-100.0); Mean Platelet Volume 6.8; Monocytes # (A) 0.5 k/uL (0-1.0); Monocytes % (A) 10 %; Neutrophils % (A) 57 %; Platelet Count 288 k/uL (150-450); RBC 2.94 m/uL (3.80-5.40); RDW 15.1 % (11.5-15.5); WBC 5.3 k/uL (3.8-10.6)
[2024-11-10 09:01] LABS: ALT 15 U/L (4-34); AST 28 U/L (14-36); African American GFR (CKD) >90 (>60 ml/min/1.73 sqM); Albumin 3.3 g/dL (3.5-5.0); Alkaline Phosphatase 53 U/L (38-126); Anion Gap 7 mmol/L; Blood Urea Nitrogen 11 mg/dL (7-17); Calcium 8.4 mg/dL (8.4-10.2); Carbon Dioxide 25 mmol/L (22-30); Chloride 106 mmol/L (98-107); Glucose 109 mg/dL (74-99); Non-African American GFR(CKD) 81 (>60 ml/min/1.73 sqM); Potassium 3.9 mmol/L (3.5-5.1); Sodium 138 mmol/L (137-145); Total Bilirubin 0.6 mg/dL (0.2-1.3); Total Protein 5.3 g/dL (6.3-8.2)
--- NOTE | 2024-11-10 09:45 | P.CRDCN ---
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 She has a past medical history of CVA, dementia, hyperlipidemia. Patient and state that patient got up to the bathroom and had significant amount of rectal bleeding, bright red with sudden onset with large clots as well. Patient denies any nausea or vomiting. Patient has been admitted to the hospital on 11/07 for GI bleed was found to have initial hemoglobin of 9.1. She has been seen by general surgery with plan for EGD and colonoscopy. Yesterday around 6 PM, patient had episode of SVT captured on telemetry. Patient denies palpitations, no chest pain, no shortness of breath. SVT resolved on its own. Blood pressure 158/76, heart rate in the 80s, pulse ox 93% on room air. -EKG: Sinus rhythm no acute ST-T wave changes. Nonspecific changes. -CT abdomen pelvis: No evidence of GI hemorrhage. No evidence of vascular occlusion. Moderate severe atherosclerotic disease. No evidence of aneurysm. -Laboratory studies: Hemoglobin 7.9, electrolytes and renal function within normal limits. -Home cardiac medications: Aspirin 81 mg daily, atorvastatin 40 mg at bedtime, losartan 25 mg at noon, Toprol XL 25 mg at bedtime Review Of Systems: At the time of my exam: CONSTITUTIONAL: Denies fever or chills. HEENT: Denies blurred vision, vision changes, or eye pain. Denies hemoptysis CARDIOVASCULAR: Denies chest pain. Denies orthopnea. Denies PND. Denies palpitations RESPIRATORY: Denies shortness of breath. GASTROINTESTINAL: Denies abdominal pain. Denies nausea or vomiting. HEMATOLOGIC: Denies bleeding disorders. GENITOURINARY: Denies any blood in urine. SKIN: Denies puritis. Denies rash. Physical examination: Gen: This is an 84-year-old female in no acute distress. VS: reviewed HEENT: Head is atraumatic, normocephalic. Pupils equal, round. Sclerae is anicteric. NECK: Supple. No JVD. LUNGS: Clear to auscultation. No wheezes or rhonchi. No intercostal retractions. HEART: Regular rate and rhythm. No murmur. ABDOMEN: Soft No tenderness. EXTREMITIES: No pedal edema. No calf tenderness. NEUROLOGICAL: Patient is awake, alert and oriented x3. Assessment: Paroxysmal SVT Acute GI bleed with acute blood loss anemia History of CVA History of dementia Hyperlipidemia Plan: We will resume patient's home cardiac medications: Losartan 25 mg daily at noon and Toprol XL 25 mg at bedtime Obtain 2-D echocardiogram and Doppler study to assess cardiac structure and function Further recommendations to follow based upon clinical course At the time of discharge, patient will follow-up in the office with Dr. Víctor Mcduffie in 2 weeks. Thank you kindly for this consultation. Nurse practitioner note has been reviewed, I agree with documented findings and plan of care. Patient was seen and examined. Past Medical History Past Medical History: CVA/TIA, Diabetes Mellitus, Hyperlipidemia Additional Past Medical History / Comment(s): CVA 2023, hernia, Vascular dementia, occular strokes. History of Any Multi-Drug Resistant Organisms: None Reported Past Surgical History: Cholecystectomy, Hernia Repair Additional Past Surgical History / Comment(s): esophageal dilation Past Psychological History: Anxiety, Depression Smoking Status: Unknown if ever smoked - Past Family History Sister(s) Family Medical History: Cancer Additional Family Medical History / Comment(s): colon CA, breast CA Mother Family Medical History: Cancer Medications and Allergies Home Medications Medication Instructions Recorded Confirmed Type Aspirin EC [Ecotrin Low Dose] 81 mg PO DAILY@1200 11/08/24 11/08/24 History Atorvastatin [Lipitor] 40 mg PO HS 11/08/24 11/08/24 History Cholecalciferol [Vitamin D3 (25 50 mcg PO DAILY 11/08/24 11/08/24 History Mcg = 1000 Iu)] Escitalopram Oxalate [Lexapro] 10 mg PO HS 11/08/24 11/08/24 History Famotidine [Pepcid] 20 mg PO HS 11/08/24 11/08/24 History Levothyroxine Sodium [Synthroid] 75 mcg PO DAILY 11/08/24 11/08/24 History Losartan [Cozaar] 25 mg PO DAILY@1200 11/08/24 11/08/24 History Meloxicam [Mobic] 7.5 mg PO W/SUPPER 11/08/24 11/08/24 History Metoprolol Succinate (ER) [Toprol 25 mg PO HS 11/08/24 11/08/24 History Xl] QUEtiapine FUMARATE [SEROquel] 25 mg PO HS 11/08/24 11/08/24 History Vitamin B12 (Unknown Dose) 1 tab PO DAILY@1200 11/08/24 11/08/24 History metFORMIN HCL 1,000 mg PO BID-W/MEALS 11/08/24 11/08/24 History Allergies Allergy/AdvReac Type Severity Reaction Status Date / Time ciprofloxacin [From Cipro] Allergy PER PCP Verified 11/08/24 09:01 latex Allergy PER PCP Verified 11/08/24 09:01 Penicillins Allergy Anaphylaxis Verified 11/08/24 09:01 Physical Exam Vitals: Vital Signs Temp Pulse Resp BP Pulse Ox 11/10/24 03:54 97.8 F 88 18 158/76 93 L 11/10/24 02:08 84 18 11/10/24 00:39 97.8 F 84 18 145/73 94 L 11/09/24 19:14 97.8 F 89 16 160/82 92 L 11/09/24 16:00 97.5 F L 83 18 160/77 95 11/09/24 12:00 101 H 18 190/85 98 Intake and Output 11/09/24 11/10/24 11/10/24 22:59 06:59 14:59 Other: Voiding Method Toilet Toilet Bedside Commode Bedside Commode # Voids 1 Weight 72.4 kg Results 11/10/24 08:02 11/10/24 08:02 CBC 11/09/24 Range/Units 15:32 WBC 6.0 (3.8-10.6) k/uL RBC 3.25 L (3.80-5.40) m/uL Hgb 8.6 L (11.4-16.0) gm/dL Hct 29.0 L (34.0-46.0) % Plt Count 315 (150-450) k/uL Comprehensive Metabolic Panel 11/09/24 Range/Units 08:07 Sodium 136 L (137-145) mmol/L Potassium 4.2 (3.5-5.1) mmol/L Chloride 104 (98-107) mmol/L Carbon Dioxide 26 (22-30) mmol/L BUN 20 H (7-17) mg/dL Creatinine 0.74 (0.52-1.04) mg/dL Glucose 107 H (74-99) mg/dL Calcium 8.9 (8.4-10.2) mg/dL Current Medications Generic Name Dose Route Start Last Admin Trade Name Freq PRN Reason Stop Dose Admin Acetaminophen 650 mg 11/07/24 23:01 Acetaminophen Tab 325 Mg Tab PO Q6HR PRN Mild Pain or Fever > 100.5 Hydrocodone Bitart/Acetaminophen 1 each 11/08/24 09:06 Hydrocodone/Apap 5-325mg 1 Each Tab PO Q4HR PRN Moderate Pain (Scale 4 to 6) Al Hydroxide/Mg Hydroxide 15 ml 11/08/24 09:06 Mag Hydrox/Al Hydrox/Simeth 30 Ml Cup PO Q6HR PRN Indigestion Atorvastatin Calcium 40 mg 11/08/24 21:00 11/09/24 20:03 Atorvastatin 40 Mg Tab PO 40 mg HS QUINN Administration Cholecalciferol 50 mcg 11/09/24 09:00 11/09/24 08:41 Cholecalciferol 25 Mcg (1000 Iu) Tablet PO 50 mcg DAILY QUINN Administration Escitalopram Oxalate 10 mg 11/08/24 21:00 11/09/24 20:04 Escitalopram 10 Mg Tab PO 10 mg HS QUINN Administration Sodium Chloride 1,000 mls @ 75 mls/hr 11/07/24 23:15 11/09/24 20:07 Saline 0.9% IV 75 mls/hr .[id number] QUINN Administration Levothyroxine Sodium 75 mcg 11/08/24 09:15 11/10/24 06:10 Levothyroxine 75 Mcg Tab PO Not Given 0630 QUINN Naloxone HCl 0.2 mg 11/08/24 09:06 Naloxone 0.4 Mg/Ml 1 Ml Vial IV Q2M PRN Opioid Reversal Pantoprazole Sodium 40 mg 11/08/24 09:15 11/09/24 08:42 Pantoprazole 40 Mg/10 Ml Vial IVP 40 mg DAILY QUINN Administration Quetiapine Fumarate 25 mg 11/08/24 21:00 11/09/24 20:04 Quetiapine 25 Mg Tab PO 25 mg HS QUINN Administration Intake and Output 11/09/24 11/10/24 11/10/24 22:59 06:59 14:59 Other: Voiding Method Toilet Toilet Bedside Commode Bedside Commode # Voids 1 Weight 72.4 kg 11/09/24 15:32 11/09/24 08:07
[2024-11-10] MEDS ORDERED: PROPOFOL 10 MG/ML 20 ML VIAL IV ONE (10:02)
[2024-11-10] MEDS ORDERED: LIDOCAINE 1% INJ 10MG/ML (20 ML MDV) ONE (10:02)
[2024-11-10] MEDS: IV FLUID CONTINUATION 1,000 ML IV ONE (10:23)
[2024-11-10] MEDS: SODIUM CHLORIDE 0.9% 500 ML 500 ML IV ONE (10:24)
--- NOTE | 2024-11-10 10:37 | P.OP ---
Date of Procedure: 11/10/24 Preoperative Diagnosis: gi Bleed Postoperative Diagnosis: Gerd Hiatal hernia Diverticulosis Procedure(s) Performed: EGD Colonoscopy Anesthesia: MAC Surgeon: Donald Bailon Pathology: other (Antrum, esophagus) Condition: stable Disposition: PACU Description of Procedure: The patient was placed on the endoscopy table in the lateral position. She received IV sedation. The gastroscope was placed oropharynx passed in the esophagus and the stomach. Scope then placed through the pylorus. The first an d second portion of the duodenum appeared normal. Scope was then brought back to the antrum this appeared mildly inflamed. A biopsy performed. Scope was retroflexed the patient had a small hiatal hernia. The GE junction was at 38 cm the distal esophagus was minimal Flaim. A biopsy was performed. The scope was withdrawn. The proximal esophagus appeared normal. Scope was then withdrawn from the patient. Next digital rectal exams performed. This revealed no abnormality. The flexible colonoscope was then placed patient anus passed throughout the entire colon. The ileocecal valve was visualized. The cecum, ascending and transverse colon appeared normal. In the descending sigmoid colon extensive diverticular changes. There was no evidence of GI bleed seen throughout the entire colon. The rectum appeared normal. Scope withdrawn the patient. There is no evidence of active GI bleed. Presumed the patient may have had bleeding from diverticulosis.
[2024-11-10 11:16] LABS: Glucose,Whole Blood 129 mg/dL (70-110)
[2024-11-10] MEDS: LOSARTAN 25 MG TAB PO SCH (13:01)
--- NOTE | 2024-11-10 14:07 | P.PN ---
Subjective Progress Note Date: 11/10/24 patient is a 84-year-old lady with past medical history significant for CVA, dementia, hyperlipidemia who presented to the ER for complaint of bleeding per rectum. Patient was all right a few hours back before coming to the hospital when she suddenly started noticing bright red blood coming out of her rectum. Bleeding was sudden onset, no blood clots noticed, there was no complaint of any abdominal pain. Patient denies any altered bowel movements. There is no complaint of constipation. Denies any nausea, vomiting or hematemesis. Patient denies any history of hemorrhoids. There was no complaint of chest pain or shortness of breath. Because of this bleeding per rectum, patient brought to the ER Initial lab work done in the ER showed WBC 9, hemoglobin 9.1, platelet count 388, sodium 135, potassium 4.7, BUN 24, creatinine 0.92, glucose 142, magnesium 1.3, albumin 4 EKG done in the ER showed heart rate of 89 , no ST segment elevation or depression seen, no T-wave inversions seen. Patient admitted to internal medicine service 11/09. Patient seen and examined. Blood work done this morning showedWBC 5.6, hemoglobin 8, platelet count 281, sodium 136, potassium 4.2, BUN 20, creatinine 0.74. Patient currently undergoing bowel prep for colonoscopy. Not having any blood in the stools 11/10. Patient seen and examined. Patient overnight had a brief run of SVT. Ronn thomason underwent EGD, esophagus appeared normal, biopsy was taken showed hiatal hernia. Colonoscopy done showed diverticular changes in the descending sigmoid colon with no active bleed. REVIEW OF SYSTEMS: CONSTITUTIONAL: No fever, no malaise,. CARDIOVASCULAR: No chest pain, no palpitations, no syncope. PULMONARY: No shortness of breath, no cough, GASTROINTESTINAL: No diarrhea, no nausea, no vomiting, no abdominal pain. NEUROLOGICAL: No headaches, no weakness, PHYSICAL EXAMINATION: GENERAL: The patient is alert and oriented x3, not in any acute distress. Well developed, well nourished. HEENT: Pupils are round and equally reacting to light. EOMI. No scleral icterus. No conjunctival pallor. Normocephalic, atraumatic. No pharyngeal erythema. No thyromegaly. CARDIOVASCULAR: S1 and S2 present. No murmurs, rubs, or gallops. PULMONARY: Chest is clear to auscultation, no wheezing or crackles. ABDOMEN: Soft, nontender, nondistended, normoactive bowel sounds. No palpable organomegaly. MUSCULOSKELETAL: No joint swelling or deformity. EXTREMITIES: No cyanosis, clubbing, or pedal edema. NEUROLOGICAL: Gross neurological examination did not reveal any focal deficits. SKIN: No rashes. Assessment and plan Bleeding per rectum Acute blood loss anemia SVT Hypomagnesemia History of hypertension History of hypothyroidism Dementia History of CVA Monitor vital signs Monitor CBC Monitor CMP Continue telemetry monitoring DC fluids Avoid aspirin or NSAIDs Continue IV Protonix Echo ordered CT abdominal pelvis showed no evidence for GI hemorrhage. No evidence for vascular occlusion. Patient underwent EGD, esophagus appeared normal, showed hiatal hernia,biopsy was taken. Colonoscopy done showed diverticular changes in the descending sigmoid colon with no active bleed. Cardiology following patient for SVT Labs and medication were reviewed.. Continue same treatment. Continue with symptomatic treatment. Resume home medication. Monitor labs and vitals. DVT and GI prophylaxis. Further recommendations as per clinical course of the patient Dictation was produced using [employer] dictation software. please excuse any grammatical, word or spelling errors. Objective - Vital Signs Vital signs: Vital Signs Temp 97.8 F 11/10/24 12:00 Pulse 72 11/10/24 12:00 Resp 18 11/10/24 12:00 BP 185/75 11/10/24 12:00 Pulse Ox 95 11/10/24 12:00 FiO2 Intake & Output 11/09/24 11/10/24 11/10/24 18:59 06:59 18:59 Intake Total 200 Balance 200 Weight 72.4 kg Intake: IV 200 Other: Voiding Method Bedside Commode Toilet Toilet Bedside Commode Bedside Commode # Voids 4 1 1 - Labs CBC & Chem 7: 11/10/24 08:02 11/10/24 08:02 Labs: Abnormal Lab Results - Last 24 Hours (Table) 11/09/24 11/09/24 11/09/24 Range/Units 15:32 16:24 20:17 RBC 3.25 L (3.80-5.40) m/uL Hgb 8.6 L (11.4-16.0) gm/dL Hct 29.0 L (34.0-46.0) % MCHC 29.6 L (31.0-37.0) g/dL Glucose (74-99) mg/dL POC Glucose (mg/dL) 126 H 143 H (70-110) mg/dL Total Protein (6.3-8.2) g/dL Albumin (3.5-5.0) g/dL 11/10/24 11/10/24 11/10/24 Range/Units 05:56 08:02 08:02 RBC 2.94 L (3.80-5.40) m/uL Hgb 7.9 L (11.4-16.0) gm/dL Hct 26.2 L (34.0-46.0) % MCHC 30.3 L (31.0-37.0) g/dL Glucose 109 H (74-99) mg/dL POC Glucose (mg/dL) 120 H (70-110) mg/dL Total Protein 5.3 L (6.3-8.2) g/dL Albumin 3.3 L (3.5-5.0) g/dL 11/10/24 Range/Units 11:15 RBC (3.80-5.40) m/uL Hgb (11.4-16.0) gm/dL Hct (34.0-46.0) % MCHC (31.0-37.0) g/dL Glucose (74-99) mg/dL POC Glucose (mg/dL) 129 H (70-110) mg/dL Total Protein (6.3-8.2) g/dL Albumin (3.5-5.0) g/dL
[2024-11-10 17:22] LABS: Glucose,Whole Blood 132 mg/dL (70-110)
--- NOTE | 2024-11-10 17:56 | CA ---
Transthoracic Echo Report Name: Leigh Woods Age: 84 Gender: F : 1940 Exam Date: 11/10/2024 10:51 Exam Location: [place] [facility] Ht (in): 60 Wt (lb): 159 Ordering Physician: Rachel Marks Attending/Referring Phys: [id number], Kendrick Crisis Specialist Xena Knapp RDCS Procedure CPT: Indications: LVF Cardiac Hx: CVA, HTN Technical Quality: Good Contrast 1: Total Dose (mL): Contrast 2: Total Dose (mL): MEASUREMENTS (Male / Female) Normal Values 2D ECHO LV Diastolic Diameter PLAX 5.4 cm 4.2 - 5.9 / 3.9 - 5.3 cm LV Systolic Diameter PLAX 3.5 cm IVS Diastolic Thickness 0.8 cm 0.6 - 1.0 / 0.6 - 0.9 cm LVPW Diastolic Thickness 0.8 cm 0.6 - 1.0 / 0.6 - 0.9 cm LV Relative Wall Thickness 0.3 RV Internal Dim ED PLAX 2.7 cm LVOT Diameter 1.4 cm LA Systolic Diameter LX 4.4 cm 3.0 - 4.0 / 2.7 - 3.8 cm LV Diastolic Volume MOD 4C 80.0 cm??? LV Systolic Volume MOD 4C 34.9 cm??? LV Ejection Fraction MOD 4C 56.4 % LV Cardiac Index MOD 4C 2055.6 cm???/min???m??? LV Diastolic Length 4C 7.0 cm LV Systolic Length 4C 5.8 cm LV Diastolic Volume MOD 2C 74.9 cm??? LV Systolic Volume MOD 2C 29.1 cm??? LV Ejection Fraction MOD 2C 61.1 % LV Cardiac Index MOD 2C 2085.3 cm???/min???m??? LV Diastolic Length 2C 7.5 cm LV Systolic Length 2C 6.0 cm LA Volume 60.8 cm??? 18 - 58 / 22 - 52 cm??? LA Volume Index 34.2 cm???/m??? 16 - 28 cm???/m??? DOPPLER AI Peak Velocity 289.8 cm/s AI Peak Gradient 33.6 mmHg AI Pressure Half Time 481.0 ms LVOT Peak Velocity 81.9 cm/s LVOT Peak Gradient 2.7 mmHg LVOT Velocity Time Integral 17.9 cm LVOT Stroke Volume 26.6 cm??? LVOT Stroke Volume Index 15.7 ml/m??? LVOT Cardiac Index 1211.1 cm???/min???m??? MV Area PHT 2.7 cm??? Mitral E Point Velocity 54.6 cm/s Mitral A Point Velocity 91.8 cm/s Mitral E to A Ratio 0.6 MV Deceleration Time 279.2 ms TR Peak Velocity 280.3 cm/s TR Peak Gradient 31.4 mmHg Right Atrial Pressure 5.0 mmHg Pulmonary Artery Systolic Pressu 36.4 mmHg Right Ventricular Systolic Press 36.4 mmHg FINDINGS Left Ventricle Left ventricular ejection fraction is estimated at 55-60%. Normal left ventricular systolic function with no obvious regional wall motion abnormalities. Left ventricular wall thickness normal. Right Ventricle Moderate right ventricular dilatation. Mild pulmonary hypertension. Right ventricular systolic pressure estimated at 36 mm hg. Right Atrium Normal right atrial size. Left Atrium Moderately increased left atrial diameter. Mildly increased left atrial volume. Mitral Valve Mitral valve thickened. Mild mitral annular calcification. No mitral stenosis. mild mitral regurgitation. Aortic Valve Trileaflet aortic valve. Thickened aortic valve without stenosis. Mild aortic regurgitation. Tricuspid Valve Structurally normal tricuspid valve. No tricuspid stenosis. Mild tricuspid regurgitation. Pulmonic Valve Structurally normal pulmonic valve. No pulmonic stenosis. Trace pulmonic regurgitation. Pericardium No pericardial effusion. Aorta Normal size aortic root and proximal ascending aorta. CONCLUSIONS 1. Normal left ventricular size and systolic function 2. Mild mitral, aortic and tricuspid regurgitation 3. Mild pulmonary hypertension Previewed by: Dr. Javon Colin MD (Electronically Signed) Final Date: 10 November 2024 17:55
[2024-11-10 20:18] LABS: Glucose,Whole Blood 178 mg/dL (70-110)
[2024-11-10 20:18] LABS: Glucose,Whole Blood 187 mg/dL (70-110)
[2024-11-10] MEDS: METOPROLOL SUCCINATE (ER) 25 MG TAB.ER.24H PO SCH (20:54)
[2024-11-11 03:12] LABS: % Iron Saturation 6.34 (12.00-45.00); Ferritin 16.4 ng/mL (10.0-291.0); Iron 23 UG/DL (50-170); Total Iron Binding Capacity 363 UG/DL (228-460)
[2024-11-11 07:13] LABS: Glucose,Whole Blood 129 mg/dL (70-110)
[2024-11-11 07:34] VITALS: RESP 17
[2024-11-11 09:04] LABS: HCT 28.2 % (34.0-46.0); HGB 8.6 gm/dL (11.4-16.0); Hypochromasia Marked; MCH 27.4 pg (25.0-35.0); MCHC 30.5 g/dL (31.0-37.0); MCV 89.7 fL (80.0-100.0); Mean Platelet Volume 7.4; Platelet Count 288 k/uL (150-450); RBC 3.14 m/uL (3.80-5.40); RDW 15.1 % (11.5-15.5); WBC 4.5 k/uL (3.8-10.6)
[2024-11-11 12:03] LABS: Glucose,Whole Blood 156 mg/dL (70-110)
[2024-11-11 12:16] VITALS: BP 177/86; PULSE 74; TEMP 98
[2024-11-11] MEDS: LOSARTAN 25 MG TAB PO STA (12:32)
--- NOTE | 2024-11-11 12:52 | P.PN ---
Subjective HISTORY OF PRESENT ILLNESS: This is a 84-year-old female with no previous cardiac history and does not follow with a entry level sales associate. She has a past medical history of CVA, dementia, hyperlipidemia. Patient and state that patient got up to the bathroom and had significant amount of rectal bleeding, bright red with sudden onset with large clots as well. Patient denies any nausea or vomiting. Patient has been admitted to the hospital on 11/07 for GI bleed was found to have initial hemoglobin of 9.1. She has been seen by general surgery with plan for EGD and colonoscopy. Yesterday around 6 PM, patient had episode of SVT captured on telemetry. Patient denies palpitations, no chest pain, no shortness of breath. SVT resolved on its own. Blood pressure 158/76, heart rate in the 80s, pulse ox 93% on room air. -EKG: Sinus rhythm no acute ST-T wave changes. Nonspecific changes. -CT abdomen pelvis: No evidence of GI hemorrhage. No evidence of vascular occlusion. Moderate severe atherosclerotic disease. No evidence of aneurysm. -Laboratory studies: Hemoglobin 7.9, electrolytes and renal function within normal limits. -Home cardiac medications: Aspirin 81 mg daily, atorvastatin 40 mg at bedtime, losartan 25 mg at noon, Toprol XL 25 mg at bedtime 11/11/2024 Patient examined this morning the bedside. Patient denies chest pain or pressure. She denies shortness of breath. She is complaining of pain in her left knee. Echocardiogram completed revealing ejection fraction 55 to 60%, mild pulmonary hypertension, mild aortic regurgitation, mild tricuspid regurgitation. Blood pressure is elevated with a systolic in the [id number]. PHYSICAL EXAM: VITAL SIGNS: Reviewed. GENERAL: Well-developed in no acute distress. NECK: Supple. No JVD or thyromegaly LUNGS: Respirations even and unlabored. Lungs essentially clear to auscultation bilaterally. HEART: Regular rate and rhythm. S1 and S2 heard. EXTREMITIES: Normal range of motion. No clubbing or cyanosis. Peripheral pulses intact. No lower extremity edema ASSESSMENT: Paroxysmal SVT Acute GI bleed with acute blood loss anemia History of CVA History of dementia Hyperlipidemia PLAN: Increase losartan 50 mg daily for optimal blood pressure control Continue current dose of metoprolol Patient is currently stable from a cardiac standpoint with no further inpatient recommendations We will sign off. Please reconsult if needed. Patient to follow-up postdischarge with Dr. Mcduffie Nurse practitioner note has been reviewed by physician. Signing provider agrees with the documented findings, assessment, and plan of care documented by TABLEAU REPORT DEVELOPER as a scribe. Objective - Vital Signs Vital signs: Vital Signs Temp 98 F 11/11/24 12:04 Pulse 74 11/11/24 12:04 Resp 17 11/11/24 12:04 BP 177/86 11/11/24 12:04 Pulse Ox 97 11/11/24 12:04 FiO2 Intake & Output 11/10/24 11/11/24 11/11/24 18:59 06:59 18:59 Intake Total 980 Balance 980 Intake: IV 200 Oral 780 Other: Voiding Method Toilet Toilet Bedside Commode Bedside Commode Diaper Incontinent # Voids 1 1 1 # Bowel Movements 1 - Labs CBC & Chem 7: 11/11/24 08:46 11/10/24 08:02 Labs: Abnormal Lab Results - Last 24 Hours (Table) 11/10/24 11/10/24 11/10/24 Range/Units 08:02 08:02 17:20 RBC (3.80-5.40) m/uL Hgb (11.4-16.0) gm/dL Hct (34.0-46.0) % MCHC (31.0-37.0) g/dL POC Glucose (mg/dL) 132 H (70-110) mg/dL Iron 23 L (50-170) UG/DL % Saturation 6.34 L (12.00-45.00) RBC Folate 1,006 H (280 - 791) ng/mL 11/10/24 11/10/24 11/11/24 Range/Units 20:12 20:16 07:11 RBC (3.80-5.40) m/uL Hgb (11.4-16.0) gm/dL Hct (34.0-46.0) % MCHC (31.0-37.0) g/dL POC Glucose (mg/dL) 187 H 178 H 129 H (70-110) mg/dL Iron (50-170) UG/DL % Saturation (12.00-45.00) RBC Folate (280 - 791) ng/mL 11/11/24 11/11/24 Range/Units 08:46 12:01 RBC 3.14 L (3.80-5.40) m/uL Hgb 8.6 L (11.4-16.0) gm/dL Hct 28.2 L (34.0-46.0) % MCHC 30.5 L (31.0-37.0) g/dL POC Glucose (mg/dL) 156 H (70-110) mg/dL Iron (50-170) UG/DL % Saturation (12.00-45.00) RBC Folate (280 - 791) ng/mL
--- NOTE | 2024-11-11 13:16 | P.DS ---
Providers Date of admission: 11/07/24 23:02 Expected date of discharge: 11/11/24 Attending physician: Brittni Barrientos Consults: 11/07/24 23:01 Consult Physician Routine Consulting Provider: Donald Bailon Consult Reason/Comments: Lower GI bleed Do you want consulting provider notified?: Already Contacted Primary care physician: Blanka Francisco DO Hospital Course: Discharge diagnoses; Bleeding per rectum Acute blood loss anemia SVT Hypomagnesemia History of hypertension History of hypothyroidism Dementia History of CVA Hospital course; patient is a 84-year-old lady with past medical history significant for CVA, dementia, hyperlipidemia who presented to the ER for complaint of bleeding per rectum. Patient was all right a few hours back before coming to the hospital when she suddenly started noticing bright red blood coming out of her rectum. Bleeding was sudden onset, no blood clots noticed, there was no complaint of any abdominal pain. Patient denies any altered bowel movements. There is no complaint of constipation. Denies any nausea, vomiting or hematemesis. Patient denies any history of hemorrhoids. There was no complaint of chest pain or shortness of breath. Because of this bleeding per rectum, patient brought to the ER Initial lab work done in the ER showed WBC 9, hemoglobin 9.1, platelet count 388, sodium 135, potassium 4.7, BUN 24, creatinine 0.92, glucose 142, magnesium 1.3, albumin 4 EKG done in the ER showed heart rate of 89 , no ST segment elevation or depression seen, no T-wave inversions seen. Patient admitted to internal medicine service 11/09. Patient seen and examined. Blood work done this morning showedWBC 5.6, hemoglobin 8, platelet count 281, sodium 136, potassium 4.2, BUN 20, creatinine 0.74. Patient currently undergoing bowel prep for colonoscopy. Not having any blood in the stools 11/10. Patient seen and examined. Patient overnight had a brief run of SVT. Patient underwent EGD, esophagus appeared normal, biopsy was taken showed hiatal hernia. Colonoscopy done showed diverticular changes in the descending sigmoid colon with no active bleed. 11/11. Patient seen and examined. Hemoglobin remained stable. Cardiology increase the dose of losartan to 50 mg, recommend giving patient on Toprol. Patient being discharged stable condition PHYSICAL EXAMINATION: GENERAL: The patient is alert and oriented x3, not in any acute distress. Well developed, well nourished. HEENT: Pupils are round and equally reacting to light. EOMI. No scleral icterus. No conjunctival pallor. Normocephalic, atraumatic. No pharyngeal erythema. No thyromegaly. CARDIOVASCULAR: S1 and S2 present. No murmurs, rubs, or gallops. PULMONARY: Chest is clear to auscultation, no wheezing or crackles. ABDOMEN: Soft, nontender, nondistended, normoactive bowel sounds. No palpable organomegaly. MUSCULOSKELETAL: No joint swelling or deformity. EXTREMITIES: No cyanosis, clubbing, or pedal edema. NEUROLOGICAL: Gross neurological examination did not reveal any focal deficits. SKIN: No rashes. Dictation was produced using [employer] dictation software. please excuse any grammatical, word or spelling errors. Patient Condition at Discharge: Stable Plan - Discharge Summary Discharge Rx Participant: No New Discharge Prescriptions: New Losartan [Cozaar] 50 mg PO DAILY@1200 30 Days #30 tab Pantoprazole Sodium [Protonix] 40 mg PO DAILY 30 Days #30 tab Continue Levothyroxine Sodium [Synthroid] 75 mcg PO DAILY Famotidine [Pepcid] 20 mg PO HS Escitalopram Oxalate [Lexapro] 10 mg PO HS Cholecalciferol [Vitamin D3 (25 Mcg = 1000 Iu)] 50 mcg PO DAILY Atorvastatin [Lipitor] 40 mg PO HS Metoprolol Succinate (ER) [Toprol XL] 25 mg PO HS metFORMIN HCL 1,000 mg PO BID-W/MEALS Vitamin B12 (Unknown Dose) 1 tab PO DAILY@1200 QUEtiapine FUMARATE [SEROquel] 25 mg PO HS Discontinued Meloxicam [Mobic] 7.5 mg PO W/SUPPER Losartan [Cozaar] 25 mg PO DAILY@1200 Aspirin EC [Ecotrin Low Dose] 81 mg PO DAILY@1200 Discharge Medication List Atorvastatin [Lipitor] 40 mg PO HS 11/08/24 [History] Cholecalciferol [Vitamin D3 (25 Mcg = 1000 Iu)] 50 mcg PO DAILY 11/08/24 [History] Escitalopram Oxalate [Lexapro] 10 mg PO HS 11/08/24 [History] Famotidine [Pepcid] 20 mg PO HS 11/08/24 [History] Levothyroxine Sodium [Synthroid] 75 mcg PO DAILY 11/08/24 [History] Metoprolol Succinate (ER) [Toprol XL] 25 mg PO HS 11/08/24 [History] QUEtiapine FUMARATE [SEROquel] 25 mg PO HS 11/08/24 [History] Vitamin B12 (Unknown Dose) 1 tab PO DAILY@1200 11/08/24 [History] metFORMIN HCL 1,000 mg PO BID-W/MEALS 11/08/24 [History] Losartan [Cozaar] 50 mg PO DAILY@1200 30 Days #30 tab 11/11/24 [Rx] Pantoprazole Sodium [Protonix] 40 mg PO DAILY 30 Days #30 tab 11/11/24 [Rx] Follow up Appointment(s)/Referral(s): Blanka Francisco DO [Primary Care Provider] - 1-2 days Donald Bailon MD [STAFF PHYSICIAN] - 1 Week Patient Instructions/Handouts: Diverticulosis (DC), Diverticulitis Diet (DC) Discharge Disposition: HOME SELF-CARE
--- NOTE | 2024-11-11 13:47 | P.PN ---
Subjective Progress Note Date: 11/11/24 SURGICAL PROGRESS NOTE CHIEF COMPLAINT: GI bleed HISTORY OF PRESENT ILLNESS: Patient is status post colonoscopy and EGD results reported GERD, hiatal hernia and diverticulosis. Patient had no active blee ding. Patient sitting up in bed comfortably. No further bleeding per rectum. Hemoglobin is up from 7.9-8.6. Vital stable. She is scheduled for discharge. PHYSICAL EXAM: VITAL SIGNS: Reviewed. GENERAL: Well-developed in no acute distress. ABDOMEN: Soft. Nondistended. Nontender. NEUROLOGIC: Alert and oriented. Cranial nerves II through XII grossly intact. Hard of hearing. ASSESSMENT: 1. Acute GI bleed likely secondary to a diverticular bleed 2. Anemia PLAN: -Patient with no further active bleeding. Hemoglobin stable. Patient is stable from surgical standpoint for discharge Physician Manager Of Sales note has been reviewed by physician. Signing provider agrees with the documented findings, assessment, and plan of care. Objective - Vital Signs Vital signs: Vital Signs Temp 98 F 11/11/24 12:04 Pulse 74 11/11/24 12:04 Resp 17 11/11/24 12:04 BP 177/86 11/11/24 12:04 Pulse Ox 97 11/11/24 12:04 FiO2 Intake & Output 11/10/24 11/11/24 11/11/24 18:59 06:59 18:59 Intake Total 980 Balance 980 Intake: IV 200 Oral 780 Other: Voiding Method Toilet Toilet Toilet Bedside Commode Bedside Commode Diaper Incontinent # Voids 1 1 1 # Bowel Movements 1 - Labs CBC & Chem 7: 11/11/24 08:46 11/10/24 08:02 Labs: Abnormal Lab Results - Last 24 Hours (Table) 11/10/24 11/10/24 11/10/24 Range/Units 08:02 08:02 17:20 RBC (3.80-5.40) m/uL Hgb (11.4-16.0) gm/dL Hct (34.0-46.0) % MCHC (31.0-37.0) g/dL POC Glucose (mg/dL) 132 H (70-110) mg/dL Iron 23 L (50-170) UG/DL % Saturation 6.34 L (12.00-45.00) RBC Folate 1,006 H (280 - 791) ng/mL 11/10/24 11/10/24 11/11/24 Range/Units 20:12 20:16 07:11 RBC (3.80-5.40) m/uL Hgb (11.4-16.0) gm/dL Hct (34.0-46.0) % MCHC (31.0-37.0) g/dL POC Glucose (mg/dL) 187 H 178 H 129 H (70-110) mg/dL Iron (50-170) UG/DL % Saturation (12.00-45.00) RBC Folate (280 - 791) ng/mL 11/11/24 11/11/24 Range/Units 08:46 12:01 RBC 3.14 L (3.80-5.40) m/uL Hgb 8.6 L (11.4-16.0) gm/dL Hct 28.2 L (34.0-46.0) % MCHC 30.5 L (31.0-37.0) g/dL POC Glucose (mg/dL) 156 H (70-110) mg/dL Iron (50-170) UG/DL % Saturation (12.00-45.00) RBC Folate (280 - 791) ng/mL
[2024-11-12] MEDS ORDERED: LOSARTAN 50 MG TAB PO SCH (12:00)
[2024-11-15] MEDS ORDERED: VITAMIN B12 PO SCH (09:00)
== END 2024-11-11 15:25 | disposition home or self-care (01) | DRG 378 ==
LOC: EC 21:39 → 3SCARD 23:02 → 5NMEDONC 11-10 14:20
PROVIDERS: ADMIT Hospitalist; ATTEND Hospitalist
PROC: 30233N1 Transfusion of Nonautologous Red Blood Cells into Peripheral Vein, Percutaneous Approach (ICD-10-PCS; 2024-11-08)
PROC: 0DJD8ZZ Inspection of Lower Intestinal Tract, Via Natural or Artificial Opening Endoscopic (ICD-10-PCS; 2024-11-10)
PROC: 0DB58ZX Excision of Esophagus, Via Natural or Artificial Opening Endoscopic, Diagnostic (ICD-10-PCS; principal; 2024-11-10 10:05)
PROC: 0DB78ZX Excision of Stomach, Pylorus, Via Natural or Artificial Opening Endoscopic, Diagnostic (ICD-10-PCS; 2024-11-10 10:05)
DX: K57.31 Diverticulosis of large intestine without perforation or abscess with bleeding (principal); D62 Acute posthemorrhagic anemia; F01.53 Vascular dementia, unspecified severity, with mood disturbance; E11.9 Type 2 diabetes mellitus without complications; E03.9 Hypothyroidism, unspecified; F32.A Depression, unspecified; I10 Essential (primary) hypertension; F01.54 Vascular dementia, unspecified severity, with anxiety; I47.19 Other supraventricular tachycardia; E83.42 Hypomagnesemia; E78.5 Hyperlipidemia, unspecified; K21.9 Gastro-esophageal reflux disease without esophagitis; K44.9 Diaphragmatic hernia without obstruction or gangrene; Z79.82 Long term (current) use of aspirin; Z79.84 Long term (current) use of oral hypoglycemic drugs; Z79.890 Hormone replacement therapy; Z79.899 Other long term (current) drug therapy; Z86.73 Personal history of transient ischemic attack (TIA), and cerebral infarction without residual deficits; Z88.1 Allergy status to other antibiotic agents; Z88.0 Allergy status to penicillin; Z91.040 Latex allergy status; Z87.19 Personal history of other diseases of the digestive system; Z90.49 Acquired absence of other specified parts of digestive tract
CPT/HCPCS: 36415; 36430; 43239; 45378; 74174; 80048; 80053; 82607; 82728; 82747; 83540; 83550; 83735; 85025; 85027; 85045; 85610; 85730; 86850; 86900; 86901; 86920; 88305; 93005; 93306; 96361; 96365; 96366; 96375; 99285

== ENCOUNTER 2024-11-28 18:46 | Observation (INO) | payer MEDICARE ==
--- NOTE | 2024-11-28 18:50 | ED ---
Weakness HPI - General Stated complaint: failure to thrive Time Seen by Provider: 11/28/24 18:49 Source: RN notes reviewed, old records reviewed Mode of arrival: ambulatory Limitations: no limitations - History of Present Illness Initial comments: This is an 84-year-old female to the ER for evaluation today. Patient is coming in without any complaints she does have some underlying dementia so does is a poor historian EMS reports that patient has been significantly altered th roughout the day not taking some medications may be taking others to watch acting inappropriately and concerning for the family. They are concerned for her health situation currently. Patient self admits to feeling weak but for the most part has no complaints of pain shortness of breath abdominal pain nausea vomiting or diarrhea no fevers MD Complaint: generalized weakness -: hour(s) Location: generalized Severity: moderate Severity scale (1-10): 6 Consistency: constant Improves with: none Context: recent illness, history of similar Associated Symptoms: denies other symptoms - Related Data Home Medications Medication Instructions Recorded Confirmed Atorvastatin [Lipitor] 40 mg PO HS 11/08/24 11/28/24 Cholecalciferol [Vitamin D3 (25 50 mcg PO DAILY 11/08/24 11/28/24 Mcg = 1000 Iu)] Escitalopram Oxalate [Lexapro] 10 mg PO HS 11/08/24 11/28/24 Levothyroxine Sodium [Synthroid] 75 mcg PO DAILY 11/08/24 11/28/24 Metoprolol Succinate (ER) [Toprol 25 mg PO HS 11/08/24 11/28/24 XL] QUEtiapine FUMARATE [SEROquel] 25 mg PO HS 11/08/24 11/28/24 Vitamin B12 (Unknown Dose) 1 tab PO DAILY@1200 11/08/24 11/28/24 metFORMIN HCL 1,000 mg PO BID-W/MEALS 11/08/24 11/28/24 Aspirin EC [Ecotrin Low Dose] 81 mg PO DAILY 11/28/24 11/28/24 Previous Rx's Medication Instructions Recorded Losartan [Cozaar] 50 mg PO DAILY@1200 30 Days #30 tab 11/11/24 Pantoprazole Sodium [Protonix] 40 mg PO DAILY 30 Days #30 tab 11/11/24 Folic Acid 1 mg PO DAILY@1200 #30 tab 11/30/24 Multivitamins, Thera [Multivitamin 1 each PO DAILY@1200 #30 tab 11/30/24 (formulary)] Thiamine [Vitamin B-1] 100 mg PO BID-W/MEALS #60 tab 11/30/24 Allergies Allergy/AdvReac Type Severity Reaction Status Date / Time ciprofloxacin [From Cipro] Allergy PER PCP Verified 11/28/24 18:51 latex Allergy PER PCP Verified 11/28/24 18:51 Penicillins Allergy Anaphylaxis Verified 11/28/24 18:51 Review of Systems ROS Statement: Those systems with pertinent positive or pertinent negative responses have been documented in the HPI. ROS Other: All systems not noted in ROS Statement are negative. Past Medical History Past Medical History: CVA/TIA, Diabetes Mellitus, Hyperlipidemia Additional Past Medical History / Comment(s): CVA 2023, hernia, Vascular dementia, occular strokes. History of Any Multi-Drug Resistant Organisms: None Reported Past Surgical History: Cholecystectomy, Hernia Repair Additional Past Surgical History / Comment(s): esophageal dilation Past Psychological History: Anxiety, Depression Smoking Status: Unknown if ever smoked - Past Family History Sister(s) Family Medical History: Cancer Additional Family Medical History / Comment(s): colon CA, breast CA Mother Family Medical History: Cancer General Exam General appearance: alert, in no apparent distress Head exam: Present: atraumatic, normocephalic, normal inspection Eye exam: Present: normal appearance, PERRL, EOMI. Absent: scleral icterus, conjunctival injection, periorbital swelling ENT exam: Present: normal exam, mucous membranes moist Neck exam: Present: normal inspection. Absent: tenderness, meningismus, lymphadenopathy Respiratory exam: Present: normal lung sounds bilaterally. Absent: respiratory distress, wheezes, rales, rhonchi, stridor Cardiovascular Exam: Present: regular rate, normal rhythm, normal heart sounds. Absent: systolic murmur, diastolic murmur, rubs, gallop, clicks GI/Abdominal exam: Present: soft, normal bowel sounds. Absent: distended, tenderness, guarding, rebound, rigid Extremities exam: Present: normal inspection, full ROM, normal capillary refill. Absent: tenderness, pedal edema, joint swelling, calf tenderness Back exam: Present: normal inspection Neurological exam: Present: alert, oriented X3, CN II-XII intact Psychiatric exam: Present: normal affect, normal mood Skin exam: Present: warm, dry, intact, normal color. Absent: rash Course Vital Signs 11/28/24 11/29/24 11/29/24 18:48 00:06 02:00 Temperature 97.7 F 97.8 F 97.4 F L Pulse Rate 75 76 Pulse Rate [ 69 Pulse Oximetery ] Respiratory 18 16 14 Rate Blood Pressure 146/96 148/76 Blood Pressure 167/87 [Right Arm] O2 Sat by Pulse 95 95 99 Oximetry 11/29/24 02:31 Temperature 97.8 F Pulse Rate 71 Pulse Rate [ Pulse Oximetery ] Respiratory 16 Rate Blood Pressure 156/88 Blood Pressure [Right Arm] O2 Sat by Pulse 96 Oximetry - Reevaluation(s) Reevaluation #1: 11/29/24 00:25 Medical records reviewed Reevaluation #2: 11/29/24 00:25 Patient symptoms unchanged Reevaluation #3: 11/29/24 00:25 Inform results of questions answered Reevaluation #4: Was pt. sent in by a medical professional or institution (, PA, CONCRETE PUDDLER, urgent c are, hospital, or [facility]...) When possible be specific @ -no Did you speak to anyone other than the patient for history (EMS, parent, family, police, friend...)? What history was obtained from this source @ -no Did you review nursing and triage notes (agree or disagree)? Why? @ -agree Are old charts reviewed (outside hosp., previous admission, EMS record, old EKG, old radiological studies, urgent care reports/EKG's, [facility] records)? Report findings @ -yes Differential Diagnosis (chest pain, altered mental status, abdominal pain women, abdominal pain men, vaginal bleeding, weakness, fever, dyspnea, syncope, headache, dizziness, GI bleed, back pain, seizure, CVA, palpatations, mental health, musculoskeletal)? @ -prior EKG interpreted by me (3pts min.). @ -yes X-rays interpreted by me (1pt min.). @ -yes negative for acute disease CT interpreted by me (1pt min.). @ -Yes negative for acute disease U/S interpreted by me (1pt. min.). @ -no What testing was considered but not performed or refused? (CT, X-rays, U/S, labs)? Why? @ -none What meds were considered but not given or refused? Why? @ -none Did you discuss the management of the patient with other professionals (professionals i.e. , PA, CONCRETE PUDDLER, lab, RT, psych nurse, social work administrator, revolving field assembler, teacher, equal opportunity officer, egg caser)? Give summary @ -no Was smoking cessation discussed for >3mins.? @ -no Was critical care preformed (if so, how long)? @ -no Were there social determinants of health that impacted care today? How? (Homelessness, low income, unemployed, alcoholism, drug addiction, transporta tion, low edu. Level, literacy, decrease access to med. care, correction, rehab)? @ -none Was there de-escalation of care discussed even if they declined (Discuss DNR or withdrawal of care, Hospice)? DNR status @ -no What co-morbidities impacted this encounter? (DM, HTN, Smoking, COPD, CAD, Cancer, CVA, ARF, Chemo, Hep., AIDS, mental health diagnosis, sleep apnea, morbid obesity)? @ -none Was patient admitted / discharged? Hospital course, mention meds given and route, prescriptions, significant lab abnormalities, going to OR and other pertinent info. @ - 84 female to the ER for weakness hypomagnesemia will admit for magnesium replacement Admitted Undiagnosed new problem with uncertain prognosis? @ -no Drug Therapy requiring intensive monitoring for toxicity (Heparin, Nitro, Insulin, Cardizem)? @ -no Were any procedures done? @ -no Diagnosis/symptom? @ -Hypomagnesemia extremes of age Acute, or Chronic, or Acute on Chronic? @ -Acute Uncomplicated (without systemic symptoms) or Complicated (systemic symptoms)? @ -Complicated Side effects of treatment? @ -no Exacerbation, Progression, or Severe Exacerbation? @ -exacerbation Poses a threat to life or bodily function? How? (Chest pain, USA, SD, pneumonia, PE, COPD, DKA, ARF, appy, cholecystitis, CVA, Diverticulitis, Homicidal, S uicidal, threat to staff... and all critical care pts) @ -yes extremes of age Reevaluation #5: Differential Weakness: Hypoglycemia, shock, sepsis, hyponatremia, anemia, infection, SD, ETOH, adverse medicine reaction, overdose, stroke, this is not meant to be an all-inclusive list. - Consultations Consultation #1: Spoke with [facility] who agrees to admit this patient EKG Findings - EKG Comments: EKG Findings:: EKG is sinus 84 CT 161 QRS 90 QTc 401 - EKG Results: EKG: interpreted by YAZMIN Medical Decision Making - Medical Decision Making 84 female to the ER for weakness hypomagnesemia will admit for magnesium replacement - Lab Data Result diagrams: 12/01/24 05:29 12/01/24 05:29 Lab Results 11/28/24 11/28/24 11/28/24 Range/Units 18:55 18:55 18:55 WBC 5.4 (3.8-10.6) k/uL RBC 3.83 (3.80-5.40) m/uL Hgb 9.9 L (11.4-16.0) gm/dL Hct 32.6 L (34.0-46.0) % MCV 84.9 (80.0-100.0) fL MCH 25.9 (25.0-35.0) pg MCHC 30.5 L (31.0-37.0) g/dL RDW 15.1 (11.5-15.5) % Plt Count 471 H (150-450) k/uL MPV 6.8 Neutrophils % 53 % Lymphocytes % 31 % Monocytes % 10 % Eosinophils % 3 % Basophils % 1 % Neutrophils # 2.9 (1.3-7.7) k/uL Lymphocytes # 1.7 (1.0-4.8) k/uL Monocytes # 0.5 (0-1.0) k/uL Eosinophils # 0.2 (0-0.7) k/uL Basophils # 0.0 (0-0.2) k/uL Hypochromasia Marked Poikilocytosis Slight PT 10.8 (10.0-12.5) sec INR 1.0 (<1.2) APTT 19.0 L (22.0-30.0) sec Sodium 137 (137-145) mmol/L Potassium 3.8 (3.5-5.1) mmol/L Chloride 102 (98-107) mmol/L Carbon Dioxide 24 (22-30) mmol/L Anion Gap 11 mmol/L BUN 9 (7-17) mg/dL Creatinine 0.83 (0.52-1.04) mg/dL Est GFR (CKD-EPI)AfAm 75 (>60 ml/min/1.73 sqM) Est GFR (CKD-EPI)NonAf 65 (>60 ml/min/1.73 sqM) Glucose 169 H (74-99) mg/dL Lactic Ac Sepsis Rflx Plasma Lactic Acid Gurjit (0.7-2.0) mmol/L Calcium 10.2 (8.4-10.2) mg/dL Phosphorus 3.3 (2.5-4.5) mg/dL Magnesium 1.2 L (1.6-2.3) mg/dL Total Bilirubin 0.7 (0.2-1.3) mg/dL AST 28 (14-36) U/L ALT 20 (4-34) U/L Alkaline Phosphatase 78 (38-126) U/L Troponin I (0.000-0.034) ng/mL Total Protein 6.6 (6.3-8.2) g/dL Albumin 4.2 (3.5-5.0) g/dL TSH 0.986 (0.465-4.680) mIU/L Urine Color Urine Appearance (Clear) Urine pH (5.0-8.0) Ur Specific [place] (1.001-1.035) Urine Protein (Negative) Urine Glucose (UA) (Negative) Urine Ketones (Negative) Urine Blood (Negative) Urine Nitrite (Negative) Urine Bilirubin (Negative) Urine Urobilinogen (<2.0) mg/dL Ur Leukocyte Esterase (Negative) 11/28/24 11/28/24 11/28/24 Range/Units 18:55 18:55 20:10 WBC (3.8-10.6) k/uL RBC (3.80-5.40) m/uL Hgb (11.4-16.0) gm/dL Hct (34.0-46.0) % MCV (80.0-100.0) fL MCH (25.0-35.0) pg MCHC (31.0-37.0) g/dL RDW (11.5-15.5) % Plt Count (150-450) k/uL MPV Neutrophils % % Lymphocytes % % Monocytes % % Eosinophils % % Basophils % % Neutrophils # (1.3-7.7) k/uL Lymphocytes # (1.0-4.8) k/uL Monocytes # (0-1.0) k/uL Eosinophils # (0-0.7) k/uL Basophils # (0-0.2) k/uL Hypochromasia Poikilocytosis PT (10.0-12.5) sec INR (<1.2) APTT (22.0-30.0) sec Sodium (137-145) mmol/L Potassium (3.5-5.1) mmol/L Chloride (98-107) mmol/L Carbon Dioxide (22-30) mmol/L Anion Gap mmol/L BUN (7-17) mg/dL Creatinine (0.52-1.04) mg/dL Est GFR (CKD-EPI)AfAm (>60 ml/min/1.73 sqM) Est GFR (CKD-EPI)NonAf (>60 ml/min/1.73 sqM) Glucose (74-99) mg/dL Lactic Ac Sepsis Rflx Y Plasma Lactic Acid Gurjit 3.2 H* (0.7-2.0) mmol/L Calcium (8.4-10.2) mg/dL Phosphorus (2.5-4.5) mg/dL Magnesium (1.6-2.3) mg/dL Total Bilirubin (0.2-1.3) mg/dL AST (14-36) U/L ALT (4-34) U/L Alkaline Phosphatase (38-126) U/L Troponin I <0.012 (0.000-0.034) ng/mL Total Protein (6.3-8.2) g/dL Albumin (3.5-5.0) g/dL TSH (0.465-4.680) mIU/L Urine Color Urine Appearance (Clear) Urine pH (5.0-8.0) Ur Specific [place] (1.001-1.035) Urine Protein (Negative) Urine Glucose (UA) (Negative) Urine Ketones (Negative) Urine Blood (Negative) Urine Nitrite (Negative) Urine Bilirubin (Negative) Urine Urobilinogen (<2.0) mg/dL Ur Leukocyte Esterase (Negative) 11/28/24 Range/Units 21:45 WBC (3.8-10.6) k/uL RBC (3.80-5.40) m/uL Hgb (11.4-16.0) gm/dL Hct (34.0-46.0) % MCV (80.0-100.0) fL MCH (25.0-35.0) pg MCHC (31.0-37.0) g/dL RDW (11.5-15.5) % Plt Count (150-450) k/uL MPV Neutrophils % % Lymphocytes % % Monocytes % % Eosinophils % % Basophils % % Neutrophils # (1.3-7.7) k/uL Lymphocytes # (1.0-4.8) k/uL Monocytes # (0-1.0) k/uL Eosinophils # (0-0.7) k/uL Basophils # (0-0.2) k/uL Hypochromasia Poikilocytosis PT (10.0-12.5) sec INR (<1.2) APTT (22.0-30.0) sec Sodium (137-145) mmol/L Potassium (3.5-5.1) mmol/L Chloride (98-107) mmol/L Carbon Dioxide (22-30) mmol/L Anion Gap mmol/L BUN (7-17) mg/dL Creatinine (0.52-1.04) mg/dL Est GFR (CKD-EPI)AfAm (>60 ml/min/1.73 sqM) Est GFR (CKD-EPI)NonAf (>60 ml/min/1.73 sqM) Glucose (74-99) mg/dL Lactic Ac Sepsis Rflx Plasma Lactic Acid Gurjit (0.7-2.0) mmol/L Calcium (8.4-10.2) mg/dL Phosphorus (2.5-4.5) mg/dL Magnesium (1.6-2.3) mg/dL Total Bilirubin (0.2-1.3) mg/dL AST (14-36) U/L ALT (4-34) U/L Alkaline Phosphatase (38-126) U/L Troponin I (0.000-0.034) ng/mL Total Protein (6.3-8.2) g/dL Albumin (3.5-5.0) g/dL TSH (0.465-4.680) mIU/L Urine Color Colorless Urine Appearance Clear (Clear) Urine pH 5.0 (5.0-8.0) Ur Specific [place] 1.003 (1.001-1.035) Urine Protein Negative (Negative) Urine Glucose (UA) Negative (Negative) Urine Ketones Negative (Negative) Urine Blood Negative (Negative) Urine Nitrite Negative (Negative) Urine Bilirubin Negative (Negative) Urine Urobilinogen <2.0 (<2.0) mg/dL Ur Leukocyte Esterase Negative (Negative) - EKG Data -: EKG Interpreted by Me - Radiology Data Radiology results: report reviewed (Chest x-ray is negative for acute disease, CT brain is negative for acute disease), image reviewed Disposition Clinical Impression: Weakness, Hypomagnesemia, Altered mental status Disposition: ADMITTED IP TO THIS HOSP Condition: Fair Is patient prescribed a controlled substance at d/c from ED?: No Time of Disposition: 22:35
[2024-11-28 19:33] LABS: Basophils % (A) 1 %; Eosinophils # (A) 0.2 k/uL (0-0.7); Eosinophils % (A) 3 %; HCT 32.6 % (34.0-46.0); HGB 9.9 gm/dL (11.4-16.0); Hypochromasia Marked; Lymphocytes # (A) 1.7 k/uL (1.0-4.8); Lymphocytes % (A) 31 %; MCH 25.9 pg (25.0-35.0); MCHC 30.5 g/dL (31.0-37.0); MCV 84.9 fL (80.0-100.0); Mean Platelet Volume 6.8; Monocytes # (A) 0.5 k/uL (0-1.0); Monocytes % (A) 10 %; Neutrophils # (A) 2.9 k/uL (1.3-7.7); Neutrophils % (A) 53 %; Platelet Count 471 k/uL (150-450); Poikilocytosis Slight; RBC 3.83 m/uL (3.80-5.40); RDW 15.1 % (11.5-15.5); WBC 5.4 k/uL (3.8-10.6)
[2024-11-28 19:38] LABS: ALT 20 U/L (4-34); AST 28 U/L (14-36); African American GFR (CKD) 75 (>60 ml/min/1.73 sqM); Albumin 4.2 g/dL (3.5-5.0); Alkaline Phosphatase 78 U/L (38-126); Anion Gap 11 mmol/L; Blood Urea Nitrogen 9 mg/dL (7-17); Calcium 10.2 mg/dL (8.4-10.2); Carbon Dioxide 24 mmol/L (22-30); Chloride 102 mmol/L (98-107); Glucose 169 mg/dL (74-99); Magnesium 1.2 mg/dL (1.6-2.3); Non-African American GFR(CKD) 65 (>60 ml/min/1.73 sqM); Phosphorus 3.3 mg/dL (2.5-4.5); Potassium 3.8 mmol/L (3.5-5.1); Sodium 137 mmol/L (137-145); Total Bilirubin 0.7 mg/dL (0.2-1.3); Total Protein 6.6 g/dL (6.3-8.2)
[2024-11-28 19:39] LABS: Prothrombin Time 10.8 sec (10.0-12.5)
[2024-11-28] MEDS: SODIUM CHLORIDE 0.9% 1,000 ML IV ONE (19:47)
[2024-11-28] MEDS: MAGNESIUM SULFATE-D5W PMX 1 GM in DEXTROSE/WATER 1 100ML.BAG IVPB ONE (20:51)
[2024-11-28] MEDS: MAGNESIUM OXIDE 400 MG TAB PO STA ×2 (20:53)
--- NOTE | 2024-11-28 21:08 | XR ---
EXAMINATION TYPE: XR chest 1V portable DATE OF EXAM: 11/28/2024 8:46 PM COMPARISON: None CLINICAL INDICATION: Female, 84 years old with history of cough; [facility] TECHNIQUE: XR chest 1V portable Frontal view of the chest. FINDINGS: Lungs/Pleura: There is no evidence of pleural effusion, focal consolidation, or pneumothorax. Pulmonary vascularity: Unremarkable. Heart/mediastinum: Cardiomediastinal silhouette is unremarkable. Atherosclerotic calcifications are seen in the aorta. Musculoskeletal: No acute osseous pathology. Other findings: None IMPRESSION: 1. No acute cardiopulmonary disease process. 2. COPD changes. [facility], , 11/28/2024 9:06 PM
[2024-11-28 22:18] LABS: Appearance,Urine Clear (Clear); Bilirubin,Urine Negative (Negative); Blood,Urine Negative (Negative); Color,Urine Colorless; Glucose,Urine (UA) Negative (Negative); Ketones,Urine Negative (Negative); Leukocyte Esterase,Urine Negative (Negative); Nitrite,Urine Negative (Negative); Protein,Urine Negative (Negative); Specific Gravity,Urine 1.003 (1.001-1.035); Urobilinogen,Urine <2.0 mg/dL (<2.0)
[2024-11-28] MEDS ORDERED: NALOXONE 0.4 MG/ML 1 ML VIAL IV PRN (22:40)
[2024-11-29] MEDS: DEXTROSE 5%-0.45% NACL 1,000 ML IV SCH (00:17)
[2024-11-29 01:20] LABS: Influenza A Not Detected (Not Detectd); Influenza B Not Detected (Not Detectd); RSV Not Detected (Not Detectd)
[2024-11-29 03:59] LABS: Glucose,Whole Blood 162 mg/dL (70-110)
[2024-11-29 05:42] LABS: Basophils % (A) 1 %; Eosinophils # (A) 0.1 k/uL (0-0.7); Eosinophils % (A) 3 %; HCT 29.2 % (34.0-46.0); HGB 8.9 gm/dL (11.4-16.0); Hypochromasia Marked; Lymphocytes # (A) 1.4 k/uL (1.0-4.8); Lymphocytes % (A) 30 %; MCH 26.6 pg (25.0-35.0); MCHC 30.3 g/dL (31.0-37.0); MCV 87.8 fL (80.0-100.0); Mean Platelet Volume 6.7; Monocytes # (A) 0.4 k/uL (0-1.0); Monocytes % (A) 8 %; Neutrophils # (A) 2.6 k/uL (1.3-7.7); Neutrophils % (A) 55 %; Platelet Count 451 k/uL (150-450); Poikilocytosis Slight; RBC 3.33 m/uL (3.80-5.40); RDW 15.3 % (11.5-15.5); WBC 4.7 k/uL (3.8-10.6)
[2024-11-29 06:28] LABS: ALT 19 U/L (4-34); AST 28 U/L (14-36); African American GFR (CKD) 86 (>60 ml/min/1.73 sqM); Albumin 3.5 g/dL (3.5-5.0); Alkaline Phosphatase 64 U/L (38-126); Anion Gap 6 mmol/L; Blood Urea Nitrogen 7 mg/dL (7-17); Calcium 9.1 mg/dL (8.4-10.2); Carbon Dioxide 24 mmol/L (22-30); Chloride 106 mmol/L (98-107); Glucose 187 mg/dL (74-99); Magnesium 1.6 mg/dL (1.6-2.3); Non-African American GFR(CKD) 75 (>60 ml/min/1.73 sqM); Phosphorus 3.1 mg/dL (2.5-4.5); Potassium 3.9 mmol/L (3.5-5.1); Sodium 136 mmol/L (137-145); Total Bilirubin 0.7 mg/dL (0.2-1.3); Total Protein 5.7 g/dL (6.3-8.2)
[2024-11-29 07:09] LABS: Glucose,Whole Blood 188 mg/dL (70-110)
[2024-11-29] MEDS: PANTOPRAZOLE 40 MG/10 ML VIAL IV SCH (08:50)
[2024-11-29 12:08] LABS: Glucose,Whole Blood 258 mg/dL (70-110)
[2024-11-29] MEDS ORDERED: DEXTROSE 50% SYRINGE 50 ML IVP PRN ×2 (13:21)
[2024-11-29] MEDS: CHOLECALCIFEROL 25 MCG (1000 IU) TABLET PO SCH (13:51)
[2024-11-29] MEDS: LEVOTHYROXINE 75 MCG TAB PO SCH (13:51)
[2024-11-29] MEDS: ASPIRIN 81 MG PO SCH (13:51)
[2024-11-29] MEDS: PANTOPRAZOLE 40 MG TABLET PO SCH (13:51)
[2024-11-29] MEDS: INSULIN LISPRO (HumaLOG) 100 UNIT/ML 10 mL VL SQ SCH (13:54)
--- NOTE | 2024-11-29 15:04 | CT ---
EXAMINATION TYPE: CT brain wo con DATE OF EXAM: 11/29/2024 COMPARISON: Findings: The ventricles, basal cisterns and sulci over convexities are moderately enlarged consistent with mod erate generalized atrophy, appropriate for the patient's age. There is moderate decreased density in the periventricular white matter consistent with chronic ische crescencio white matter demyelination. There is a remote lacunar infarct in the left basal ganglia. There is no mass effect or shift of midline structures. There is no acute intra or extra-axial hemorrhage. The posterior fossa including the brainstem, fourth ventricle and cerebellopontine angles appear magen sly normal. The intraorbital contents appear normal symmetric Visualized paranasal sinuses and mastoid air cells are well aerated. Calvarium is intact. IMPRESSION: 1. Moderate Age appropriate senescent changes as described above. 2. Remote lacunar infarct in the left basal ganglia. 3. No acute bleed or mass effect. [facility], Workstation: [facility], 11/29/2024 3:01 PM
[2024-11-29 16:03] VITALS: BMI 27.9
[2024-11-29 16:53] LABS: Glucose,Whole Blood 109 mg/dL (70-110)
[2024-11-29] MEDS: THIAMINE 100 MG TAB PO SCH (17:56)
[2024-11-29] MEDS: metFORMIN 500 MG TAB PO SCH (17:56)
--- NOTE | 2024-11-29 20:40 | HP ---
HISTORY AND PHYSICAL CHIEF COMPLAINT: Change in mental status. HISTORY OF PRESENT ILLNESS: This is an 84-year-old woman with a past medical history of dementia and multiple medical problems, was brought to [facility] with complaints of change in mental status. The patient was evaluated and hemoglobin was found to be 8.9. Sugars are noted. COVID-19 is negative and the patient was admitted for further evaluation and treatment. The patient was recently discharged from the hospital with bleeding per rectum, blood-loss anemia, SVT, and other medical issues. Currently, the patient is unable to give a coherent history. Most of the history taken by discussion with staff and as well as review of the chart. PAST MEDICAL HISTORY: Reviewed from the chart, which includes diabetes mellitus, hypertension. Rest of the history and rest of the chart are also reviewed. HOME MEDICATIONS: Reviewed and include metformin. Dose and rest of medications reviewed. ALLERGIES: Reviewed include Cipro. FAMILY HISTORY: Could not be taken. SOCIAL HISTORY: Could not be taken. REVIEW OF SYSTEMS: Could not be taken. PHYSICAL EXAMINATION: VITAL SIGNS: Pulse is 71, blood pressure 104/59, respirations 16. HEENT: Conjunctivae normal. NECK: No JVD. CARDIOVASCULAR: S1, S2. RESPIRATIONS: Breath sounds diminished at the bases. ABDOMEN: Soft, nontender. NERVOUS SYSTEM: Diffusely weak. SKIN: No ulcer, rash, bleeding. JOINTS: No active deforming arthropathy. LABORATORY DATA: Hemoglobin 8.9. ASSESSMENT: 1. Dementia with behavior changes, change in mental status, possible acute metabolic encephalopathy. 2. Anemia. 3. History of recent bleeding per rectum and blood-loss anemia. 4. History of supraventricular tachycardia. 5. Hypertension. 6. Hypothyroidism. 7. Gait dysfunction. 8. Cerebrovascular accident. RECOMMENDATIONS AND DISCUSSION: In this 84-year-old woman who presented with multiple complex medical issues, we will monitor the patient closely. Continue the current management and continue symptomatic treatment. Otherwise, PT/OT evaluation. There is no evidence of any infection per se at this time. I would recommend blood cultures and monitor closely. Guarded prognosis because of multiple complex medical issues. Further recommendations to follow. See orders for further details. Possible ECF rehab. MMODL / IJN: [id number] / MTDLauri
[2024-11-29 20:41] LABS: Glucose,Whole Blood 155 mg/dL (70-110)
[2024-11-29] MEDS ORDERED: FAMOTIDINE 20 MG TAB PO SCH (21:00)
[2024-11-29] MEDS: ATORVASTATIN 40 MG TAB PO SCH (22:01)
[2024-11-29] MEDS: ESCITALOPRAM 10 MG TAB PO SCH (22:01)
[2024-11-29] MEDS: METOPROLOL SUCCINATE (ER) 25 MG TAB.ER.24H PO SCH (22:01)
[2024-11-29] MEDS: QUEtiapine 25 MG TAB PO SCH (22:01)
[2024-11-30 07:15] LABS: Glucose,Whole Blood 148 mg/dL (70-110)
[2024-11-30 08:22] LABS: Basophils # (A) 0.04 X 10*3/uL (0.00-0.10); Basophils % (A) 0.8 %; Eosinophils # (A) 0.18 X 10*3/uL (0.04-0.35); Eosinophils % (A) 3.5 %; HCT 24.7 % (37.2-46.3); HGB 7.4 g/dL (12.0-15.0); Lymphocytes # (A) 1.82 X 10*3/uL (0.90-5.00); Lymphocytes % (A) 35.3 %; MCH 26.1 pg (27.0-32.0); MCV 87.3 FL (80.0-97.0); Mean Platelet Volume 8.9 FL (9.5-12.2); Monocytes # (A) 0.71 X 10*3/uL (0.20-1.00); Monocytes % (A) 13.8 %; NRBC Per 100 WBC 0 X 10*3/uL (0.00-0.01); Neutrophils % (A) 46.4 %; Platelet Count 362 X 10*3/uL (140-440); RBC 2.83 X 10*6/uL (4.10-5.20); WBC 5.16 X 10*3/uL (4.50-10.00)
[2024-11-30 08:31] LABS: BUN/Creat Ratio 10.22 Ratio (12.00-20.00); Blood Urea Nitrogen 9.2 mg/dL (9.0-27.0); Carbon Dioxide 24.9 mmol/L (21.6-31.8); Chloride 108 mmol/L (96-109); Glucose 132 mg/dL (70-110); Potassium 4.1 mmol/L (3.5-5.5); Sodium 142 mmol/L (135-145)
[2024-11-30 08:32] LABS: Calcium 8.9 mg/dL (8.7-10.3)
[2024-11-30 12:11] LABS: Glucose,Whole Blood 139 mg/dL (70-110)
[2024-11-30] MEDS: LOSARTAN 50 MG TAB PO SCH (12:49)
[2024-11-30] MEDS: MULTIVITAMINS, THERA 1 EACH TAB PO SCH (12:52)
[2024-11-30] MEDS: FOLIC ACID 1 MG TAB PO SCH (12:52)
[2024-11-30] MEDS: CYANOCOBALAMIN 500 MCG TAB PO SCH ×2 (13:01→13:04)
[2024-11-30 17:14] LABS: Glucose,Whole Blood 132 mg/dL (70-110)
[2024-11-30 20:48] LABS: Glucose,Whole Blood 159 mg/dL (70-110)
[2024-11-30] MEDS: FUROSEMIDE 10 MG/ML 2 ML VIAL IV ONE (22:15)
--- NOTE | 2024-12-01 05:51 | P.PN ---
Subjective Progress Note Date: 11/30/24 This is an 84-year-old female who was recently admitted with complains of changes in mental status per family reporting she is not able to care for herself. On exam patient is alert and responsive and answering questions and commands appropriately with who is at the bedside and hard of hearing. Patient reports she is not going to a residential and was evaluated by physical therapy and did relatively well would not qualify for rehab. Hemoglobin is 7.6 today and will transfuse 1 unit of PRBC and recommend Lasix post. Continue monitoring Accu-Cheks and will continue with sliding scale and adjust accordingly. Patient has been encouraged to increase activity including sitting up in the chair more frequently Review of systems: Constitutional: No reports of fatigue, fever, or chills Cardiovascular: No reports of chest pain or palpitations Respiratory: No reports of shortness of breath or cough GI: No reports of nausea, vomiting, or diarrhea : No reports of dysuria or retention Neurovascular: No reports of weakness or numbness All medications have been reviewed Physical exam: Gen: This is a an 84-year-old female who is awake, alert and oriented x 2-3, well-developed, elderly appearing HEENT: Head is atraumatic, normocephalic. Pupils equal, round. Sclerae is anicteric. NECK: Supple. No JVD. No lymphadenopathy. No thyromegaly. LUNGS: Diminished breath sounds bilaterally otherwise clear to auscultation. No wheezes or rhonchi. No intercostal retractions. HEART: S1, S2 are muffled ABDOMEN: Soft. Bowel sounds are present. No masses. No tenderness. EXTREMITIES: No pedal edema. No calf tenderness. NEUROLOGICAL: Patient is awake, alert and oriented x 23. Cranial nerves 2 through 12 are grossly intact. Assessment: Dementia with behavior changes, change in mental status, possible acute metabolic encephalopathy Anemia History of recent bleeding per rectum and blood loss anemia and previous admission History of SVT History of diabetes mellitus Hypertension Hypothyroidism Gait dysfunction History of CVA GI prophylaxis DVT prophylaxis Full code Plan: Patient being evaluated with social work following and physical therapy recommending home with home care as patient did relatively well today. Patient is refusing any form of rehab and would like to return home with her . Hemoglobin is 7.6 today and will transfuse 1 unit of PRBC and follow-up with rep eat CBC in a.m. No active bleeding noted although patient does have history of blood loss anemia on recent admission Follow-up on repeat labs and replace electrolytes per protocol Continue monitoring Accu-Cheks before meals and at bedtime and will adjust insulins accordingly Encouraged increase activity as tolerated with sitting up out of the bed more frequently Will discuss further with social work regarding discharge planning possibly in the next 24 hours Due to multiple complex medical issues, overall prognosis is guarded The impression and plan of care has been dictated by Danyell Stein, Nurse Practitioner as directed. Dr. Floyd MD I have performed a history and examination and MDM of this patient, discussed the same with the dictator, and agree with the dictator's assessment and plan as written ,documented as a scribe. Based on total visit time, I have performed more than 50% of the visit. Objective - Vital Signs Vital signs: Vital Signs Temp 98 F 12/01/24 01:53 Pulse 77 12/01/24 01:53 Resp 16 12/01/24 01:53 BP 158/86 12/01/24 01:53 Pulse Ox 98 12/01/24 01:53 FiO2 Intake & Output 11/30/24 11/30/24 12/01/24 06:59 18:59 06:59 Intake Total 540 0 0 Balance 540 0 0 Intake: Oral 540 Blood Product 0 0 Rc As-1 Unit 0 0 [id number] Other: Voiding Method Toilet # Voids 2 1 1 # Bowel Movements 1 - Labs CBC & Chem 7: 11/30/24 04:44 11/30/24 04:44 Labs: Abnormal Lab Results - Last 24 Hours (Table) 11/29/24 11/30/24 11/30/24 Range/Units 05:15 04:44 04:44 RBC 2.83 L (4.10-5.20) X 10*6/uL Hgb 7.4 L (12.0-15.0) g/dL Hct 24.7 L (37.2-46.3) % MCH 26.1 L (27.0-32.0) pg MCHC 30.0 L (32.0-37.0) g/dL RDW 15.0 H (11.5-14.5) % MPV 8.9 L (9.5-12.2) FL BUN/Creatinine Ratio 10.22 L (12.00-20.00) Ratio Glucose 132 H (70-110) mg/dL POC Glucose (mg/dL) (70-110) mg/dL Hemoglobin A1c 7.0 H (<=6.0) % Crossmatch 11/30/24 11/30/24 11/30/24 Range/Units 07:11 12:09 14:45 RBC (4.10-5.20) X 10*6/uL Hgb (12.0-15.0) g/dL Hct (37.2-46.3) % MCH (27.0-32.0) pg MCHC (32.0-37.0) g/dL RDW (11.5-14.5) % MPV (9.5-12.2) FL BUN/Creatinine Ratio (12.00-20.00) Ratio Glucose (70-110) mg/dL POC Glucose (mg/dL) 148 H 139 H (70-110) mg/dL Hemoglobin A1c (<=6.0) % Crossmatch See Detail 11/30/24 11/30/24 Range/Units 17:01 20:31 RBC (4.10-5.20) X 10*6/uL Hgb (12.0-15.0) g/dL Hct (37.2-46.3) % MCH (27.0-32.0) pg MCHC (32.0-37.0) g/dL RDW (11.5-14.5) % MPV (9.5-12.2) FL BUN/Creatinine Ratio (12.00-20.00) Ratio Glucose (70-110) mg/dL POC Glucose (mg/dL) 132 H 159 H (70-110) mg/dL Hemoglobin A1c (<=6.0) % Crossmatch Microbiology - Last 24 Hours (Table) 11/29/24 15:03 Blood Culture - Preliminary Blood
[2024-12-01 07:02] LABS: Glucose,Whole Blood 166 mg/dL (70-110)
[2024-12-01 08:44] LABS: BUN/Creat Ratio 15.78 Ratio (12.00-20.00); Blood Urea Nitrogen 14.2 mg/dL (9.0-27.0); Calcium 9.3 mg/dL (8.7-10.3); Carbon Dioxide 24.8 mmol/L (21.6-31.8); Chloride 106 mmol/L (96-109); Glucose 165 mg/dL (70-110); Sodium 141 mmol/L (135-145)
[2024-12-01 08:49] LABS: Basophils # (A) 0.06 X 10*3/uL (0.00-0.10); Basophils % (A) 1.1 %; Eosinophils % (A) 3.7 %; HCT 30.3 % (37.2-46.3); HGB 9.3 g/dL (12.0-15.0); Lymphocytes # (A) 1.44 X 10*3/uL (0.90-5.00); Lymphocytes % (A) 26.8 %; MCH 26.7 pg (27.0-32.0); MCHC 30.7 g/dL (32.0-37.0); MCV 87.1 FL (80.0-97.0); Monocytes # (A) 0.66 X 10*3/uL (0.20-1.00); Monocytes % (A) 12.3 %; NRBC Per 100 WBC 0 X 10*3/uL (0.00-0.01); Neutrophils % (A) 55.7 %; Platelet Count 352 X 10*3/uL (140-440); RBC 3.48 X 10*6/uL (4.10-5.20); WBC 5.38 X 10*3/uL (4.50-10.00)
[2024-12-01 12:16] LABS: Glucose,Whole Blood 137 mg/dL (70-110)
[2024-12-01 12:39] VITALS: BP 119/67; PULSE 69; RESP 16; TEMP 98.1
--- NOTE | 2024-12-04 12:15 | P.DS ---
Providers Date of admission: 11/28/24 22:42 Expected date of discharge: 11/30/24 Attending physician: Brittni Barrientos Primary care physician: Physician Nonstaff Hospital Course: Final diagnosis Dementia with behavior changes, change in mental status, possible acute metabolic encephalopathy Anemia, likely chronic from previous diverticulosis as noted on recent EGD History of recent bleeding per rectum and blood loss anemia and previous adm ission History of SVT History of diabetes mellitus Hypertension Hypothyroidism Gait dysfunction History of CVA GI prophylaxis DVT prophylaxis Full code Discharge disposition Patient is being discharged in a stable condition with guarded prognosis to home with home care. Patient will follow-up with Dr. Francisco in the outpatient setting upon discharge. Patient is to continue with current medications and outpatient follow-up with GI and/or general surgery as scheduled. Total time taken is greater than 35 minutes. Hospital course This is a 84-year-old female who was recently admitted with behavioral changes with changes in mental status being closely monitored. Concerns of possible acute metabolic encephalopathy or progressive dementia. Hemoglobin was also noted to be mildly low and was recently hospitalized underwent EGD/colonoscopy with no active bleeding noted although showing some mild antritis and diverticulosis. Patient's mentation is baseline and alert and oriented and is quite keen on going home. Family felt she needed rehab and was evaluated by physical therapy and did well recommending home with home care. Social work following working on arranging possible home care. Patient has been cleared by consultations and will be discharged home. Patient instructed to follow-up with primary care provider this week. Patient was given a unit of blood this admission and hemoglobin today is 9.2. No active bleeding noted. Recommend outpatient follow-up. Currently no reports of chest pain, shortness of breath, or palpitations. Patient is afebrile. No reports of nausea or vomiting and patient is tolerating diet. Patient will be discharged home today. Guarded prognosis given significant comorbidities Physical exam: Gen: This is a 84-year-old female who is awake, alert and oriented x 2-3, baseline, well-developed, elderly appearing HEENT: Head is atraumatic, normocephalic. Pupils equal, round. Sclerae is anicteric. NECK: Supple. No JVD. No lymphadenopathy. No thyromegaly. LUNGS: Clear to auscultation. No wheezes or rhonchi. No intercostal retractions. HEART: Regular rate and rhythm. No murmur. ABDOMEN: Soft. Bowel sounds are present. No masses. No tenderness. EXTREMITIES: No pedal edema. No calf tenderness. NEUROLOGICAL: Patient is awake, alert and oriented x3. Cranial nerves 2 through 12 are grossly intact. Please refer to medication reconciliation sheet for a list of medications. The impression and plan of care has been dictated by Danyell Stein, Nurse Practitioner as directed. Dr. Floyd MD I have performed a history and examination and MDM of this patient, discussed the same with the dictator, and agree with the dictator's assessment and plan as written ,documented as a scribe. Based on total visit time, I have performed more than 50% of the visit. Patient Condition at Discharge: Fair Plan - Discharge Summary Discharge Rx Participant: No New Discharge Prescriptions: New Folic Acid 1 mg PO DAILY@1200 #30 tab Multivitamins, Thera [Multivitamin (formulary)] 1 each PO DAILY@1200 #30 tab Thiamine [Vitamin B-1] 100 mg PO BID-W/MEALS #60 tab Continue Levothyroxine Sodium [Synthroid] 75 mcg PO DAILY Escitalopram Oxalate [Lexapro] 10 mg PO HS Cholecalciferol [Vitamin D3 (25 Mcg = 1000 Iu)] 50 mcg PO DAILY Atorvastatin [Lipitor] 40 mg PO HS Losartan [Cozaar] 50 mg PO DAILY@1200 30 Days #30 tab Pantoprazole Sodium [Protonix] 40 mg PO DAILY 30 Days #30 tab Aspirin EC [Ecotrin Low Dose] 81 mg PO DAILY Metoprolol Succinate (ER) [Toprol XL] 25 mg PO HS metFORMIN HCL 1,000 mg PO BID-W/MEALS Vitamin B12 (Unknown Dose) 1 tab PO DAILY@1200 QUEtiapine FUMARATE [SEROquel] 25 mg PO HS Discontinued Famotidine [Pepcid] 20 mg PO HS Discharge Medication List Atorvastatin [Lipitor] 40 mg PO HS 11/08/24 [History] Cholecalciferol [Vitamin D3 (25 Mcg = 1000 Iu)] 50 mcg PO DAILY 11/08/24 [History] Escitalopram Oxalate [Lexapro] 10 mg PO HS 11/08/24 [History] Levothyroxine Sodium [Synthroid] 75 mcg PO DAILY 11/08/24 [History] Metoprolol Succinate (ER) [Toprol XL] 25 mg PO HS 11/08/24 [History] QUEtiapine FUMARATE [SEROquel] 25 mg PO HS 11/08/24 [History] Vitamin B12 (Unknown Dose) 1 tab PO DAILY@1200 11/08/24 [History] metFORMIN HCL 1,000 mg PO BID-W/MEALS 11/08/24 [History] Losartan [Cozaar] 50 mg PO DAILY@1200 30 Days #30 tab 11/11/24 [Rx] Pantoprazole Sodium [Protonix] 40 mg PO DAILY 30 Days #30 tab 11/11/24 [Rx] Aspirin EC [Ecotrin Low Dose] 81 mg PO DAILY 11/28/24 [History] Folic Acid 1 mg PO DAILY@1200 #30 tab 11/30/24 [Rx] Multivitamins, Thera [Multivitamin (formulary)] 1 each PO DAILY@1200 #30 tab 11/30/24 [Rx] Thiamine [Vitamin B-1] 100 mg PO BID-W/MEALS #60 tab 11/30/24 [Rx] Follow up Appointment(s)/Referral(s): [facility], [NON-STAFF] - 1 Week Blanka Francisco DO [REFERRING] - 12/07/24 11:20 am Patient Instructions/Handouts: Thiamine (By mouth), Folic Acid (By mouth), Multivitamins, Adult Formula (By mouth), Weakness (DC) Activity/Diet/Wound Care/Special Instructions: Activity limited until follow-up Follow-up with primary care provider on discharge Continue taking medications as prescribed Discharge Disposition: HOME WITH HOME HEALTH SERVICES
== END 2024-12-01 17:08 | disposition home health service (06) ==
LOC: EC 18:46 → 5NMEDONC 22:42
PROVIDERS: ADMIT Hospitalist; ATTEND Hospitalist
DX: E83.42 Hypomagnesemia (principal); F01.518 Vascular dementia, unspecified severity, with other behavioral disturbance; R26.9 Unspecified abnormalities of gait and mobility; D64.9 Anemia, unspecified; E03.9 Hypothyroidism, unspecified; E11.9 Type 2 diabetes mellitus without complications; E78.5 Hyperlipidemia, unspecified; I10 Essential (primary) hypertension; F32.A Depression, unspecified; I47.10 Supraventricular tachycardia, unspecified; Z79.82 Long term (current) use of aspirin; Z79.84 Long term (current) use of oral hypoglycemic drugs; Z79.890 Hormone replacement therapy; Z86.73 Personal history of transient ischemic attack (TIA), and cerebral infarction without residual deficits; Z79.899 Other long term (current) drug therapy; Z88.0 Allergy status to penicillin; Z88.1 Allergy status to other antibiotic agents; Z91.040 Latex allergy status
CPT/HCPCS: 36430; 96366 ×3; 96374; 96375; 96361; 96365; 96367; 99285; 36415; 93005; 97161; 97166; 86900; 86901; 80053 ×2; 80048 ×2; 83605; 83735 ×2; 84100 ×2; 84443; 84484; 85025 ×4; 85610; 85730; 86850; 86920; 86870; 86880; 81003; 87040; 83036; 87636; 71045; 70450; G0378 ×4; P9016; J1940; J3475; J2470